=== PATIENT | male | born 1995 | race Caucasian/White ===

== ENCOUNTER 2017-03-08 15:18 | Emergency (ER) | payer OTHER ==
[~2017-03-08] VITALS: Ht 195.6 cm; Wt 69.8 kg
[2017-03-08] MEDS ORDERED: AUGMENTIN 875-1 EACH PO (18:39)
[2017-03-08] MEDS ORDERED: PERCOCET 5-3251 EACH PO (18:39)
--- NOTE | 2017-03-09 13:36 | EKG ---
[facility] [address] [facility] [place] [address] Signed Sinus tachycardia Otherwise normal ECG No previous ECGs available Confirmed by MONIKA FERNANDEZ MD ([id number]) on 03/09/2017 1:36:27 PM Electronically Signed By: MONIKA FERNANDEZ MD 03/09/17 1336 PATIENT NAME: JESICA FAY Electrocardiogram DATE OF : [birth year] PHYSICIAN: MONIKA FERNANDEZ MD REPORT #: [id number] REPORT IS CONFIDENTIAL AND NOT TO BE RELEASED WITHOUT AUTHORIZATION
== END 2017-03-08 19:24 | disposition home or self-care (01) ==
LOC: ED 15:18
DX: J01.00 Acute maxillary sinusitis, unspecified (principal); F17.200 Nicotine dependence, unspecified, uncomplicated; Z88.5 Allergy status to narcotic agent; Z88.8 Allergy status to other drugs, medicaments and biological substances
CPT/HCPCS: 70487; 71046; 80053; 81001; 83605; 85025; 87040; 93005; 93010; 96361; 96374; 96375; 99284; J0696; J1885; J2270; J2405; J7030; Q9967

== ENCOUNTER 2018-10-13 19:45 | Emergency (ER) | payer OTHER ==
[~2018-10-13] VITALS: Ht 195.6 cm; Wt 86.2 kg
[~2018-10-13 19:45] MED LIST: AUGMENTIN 875-1 EACH PO; PERCOCET 5-3251 EACH PO
--- OUTSIDE RECORDS SUMMARY | 2018-10-13 19:48 | XMS ---
PreManage Notification: JESICA FAY Security Auxiliary Operator Events No recent Security Events currently on file CR[facility]IA MET [facility] There are no care providers on record at this time. Fiorella has no Care Guidelines for this patient. Mee VISIT COUNT ([address] [facility]O [facility] TOTAL 3 NOTE: Visits indicate total known visits. ED/C VISIT TRACKING (12 MO.) 10/13/2018 19:45 [facility] [place] TYPE: Emergency COMPLAINT: - ABD PAIN 07/25/2018 02:39 [facility] ID TYPE: Emergency DIAGNOSES: - Alcohol Intoxication - Hypokalemia - Adverse effect of unspecified narcotics, sequela - Numbness in Legs - Alcohol dependence with intoxication, unspecified 11/20/2017 03:54 [facility] [place] TYPE: Emergency COMPLAINT: - INTOXICATED DIAGNOSES: - Alcohol abuse with intoxication, unspecified - Allergy status to other drugs, medicaments and biological substances status - Nicotine dependence, unspecified, uncomplicated - Post-traumatic stress disorder, unspecified - Blood alcohol level of 240 mg/100 ml or more - Allergy status to narcotic agent status INPATIENT VISIT TRACKING (12 MO.) No inpatient visits to display in this time frame [email or web address]
[2018-10-13] MEDS ORDERED: NEURONTIN300 MG PO (19:58)
[2018-10-13] MEDS ORDERED: NAPROXEN500 M1 PO (19:58)
[2018-10-13] MEDS ORDERED: OMEPRAZOLE20 MG PO (22:22)
== END 2018-10-13 22:34 | disposition home or self-care (01) ==
LOC: ED 19:45
DX: K29.00 Acute gastritis without bleeding (principal); F43.10 Post-traumatic stress disorder, unspecified; F17.200 Nicotine dependence, unspecified, uncomplicated; Z88.5 Allergy status to narcotic agent; Z88.8 Allergy status to other drugs, medicaments and biological substances; Z79.899 Other long term (current) drug therapy
CPT/HCPCS: 74177; 80053; 81001; 83690; 83735; 85025; 99284-25; J2405; J7030; Q9967

== ENCOUNTER 2019-01-23 00:19 | Emergency (ER) | payer OTHER ==
[~2019-01-23] VITALS: Ht 195.6 cm; Wt 88.5 kg
[~2019-01-23 00:19] MED LIST changes: +NAPROXEN500 M1 PO; +NEURONTIN300 MG PO; +OMEPRAZOLE20 MG PO
--- OUTSIDE RECORDS SUMMARY | 2019-01-23 00:22 | XMS ---
PreManage Notification: JESICA FAY Security Proof Machine Operator Events No recent Security Events currently on file CRITERIA MET - [facility] CARE PROVIDERS JOEL VASQUEZ Nurse Practitioner: 10/14/2018-Current PHONE: Unknown Fiorella has no Care Guidelines for this patient. E.Betsy. VISIT COUNT (12 MO[address] [facility] [address] [facility] TOTAL 3 NOTE: Visits indicate total known visits. ED/UCC VISIT TRACKING (12 MO.) 01/23/2019 00:19 [facility] [place] TYPE: Emergency COMPLAINT: - ALT LOC 10/13/2018 19:45 [facility] [place] TYPE: Emergency COMPLAINT: - ABD PAIN DIAGNOSES: - Allergy status to oth drug/meds/biol subst status - Allergy status to narcotic agent status - Acute gastritis without bleeding - Post-traumatic stress disorder, unspecified - Other rat exterminator (current) drug therapy - Nicotine dependence, unspecified, uncomplicated - Unspecified abdominal pain 07/25/2018 02:39 [facility] ID TYPE: Emergency DIAGNOSES: - Alcohol Intoxication - Hypokalemia - Adverse effect of unspecified narcotics, sequela - Numbness in Legs - Alcohol dependence with intoxication, unspecified INPATIENT VISIT TRACKING (12 MO.) No inpatient visits to display in this time frame [email or web address]
== END 2019-01-23 02:26 | disposition home or self-care (01) ==
LOC: ED 00:19
DX: Z00.8 Encounter for other general examination (principal); F17.200 Nicotine dependence, unspecified, uncomplicated; Z88.8 Allergy status to other drugs, medicaments and biological substances; Z88.5 Allergy status to narcotic agent; Z79.899 Other long term (current) drug therapy
CPT/HCPCS: 80053; 80176; 81001; 84443; 85025; 99284; G0480

== ENCOUNTER 2019-05-20 18:23 | Emergency (ER) | payer OTHER ==
[~2019-05-20] VITALS: Ht 195.6 cm; Wt 88.5 kg
[2019-05-20] MEDS ORDERED: TYLENOL WITH C1 EACH PO (20:35)
[2019-05-20] MEDS ORDERED: CRUTCH1 EACH MISC (20:36)
== END 2019-05-20 20:53 | disposition home or self-care (01) ==
LOC: ED 18:23
DX: S92.344A Nondisplaced fracture of fourth metatarsal bone, right foot, initial encounter for closed fracture (principal); S92.354A Nondisplaced fracture of fifth metatarsal bone, right foot, initial encounter for closed fracture; F17.200 Nicotine dependence, unspecified, uncomplicated; X58.XXXA Exposure to other specified factors, initial encounter
CPT/HCPCS: 73590; 73630; 99283

== ENCOUNTER 2019-08-14 17:03 | Emergency (ER) | payer OTHER ==
[~2019-08-14] VITALS: Ht 195.6 cm; Wt 88.5 kg
[~2019-08-14 17:03] MED LIST changes: +CRUTCH1 EACH MISC; +TYLENOL WITH C1 EACH PO
--- OUTSIDE RECORDS SUMMARY | 2019-08-14 17:06 | XMS ---
PreManage Notification: JESICA FAY Security Shipping Manager Events No recent Security Events currently on file CRITERIA MET - [facility] - 3 Facilities in 90 Days - [facility] - 2 Visits in 30 Days CARE PROVIDERS JOEL VASQUEZ Nurse Practitioner: Family Current PHONE: [phone] Milan Ruiz Community Health Worker 08/01/2019-Current PHONE: [phone] Fiorella has no Care Guidelines for this patient. EiNcol VISIT COUNT (12 MO.) 1 Adilson Alcala [address] [place] [address] TOTAL 6 NOTE: Visits indicate total known visits. ED/UCC VISIT TRACKING (12 MO.) 08/14/2019 17:04 [facility] [place] TYPE: Emergency COMPLAINT: - DRESSING CHANGE/ ARM INJ 07/30/2019 05:07 Adilson [place] TYPE: Emergency DIAGNOSES: - LV TX - LV 07/30/2019 01:55 [facility] [place] TYPE: Emergency DIAGNOSES: - ARTERY CUT - Alcohol use, unspecified with intoxication, uncomplicated - Laceration of brachial artery, right side, initial encounter - Laceration without foreign body of right wrist, initial encou 05/20/2019 18:24 [facility]O [place] [place] TYPE: Emergency COMPLAINT: - FOOT PAIN, INJ DIAGNOSES: - Nondisplaced fracture of fourth metatarsal bone, right foot, - Nondisplaced fracture of fifth metatarsal bone, right foot, i - Exposure to other specified factors, initial encounter - Pain in right foot - Nicotine dependence, unspecified, uncomplicated - Pain in right foot 01/23/2019 00:19 [facility] [place] TYPE: Emergency COMPLAINT: - ALT LOC DIAGNOSES: - Nicotine dependence, unspecified, uncomplicated - Other keno terminal operator (current) drug therapy - Allergy status to narcotic agent status - Encounter for other general examination - Suicidal ideations - Allergy status to other drugs, medicaments and biological sub 10/13/2018 19:45 [facility] [place] [place] TYPE: Emergency COMPLAINT: - ABD PAIN DIAGNOSES: - Allergy status to other drugs, medicaments and biological sub - Allergy status to narcotic agent status - Acute gastritis without bleeding - Post-traumatic stress disorder, unspecified - Other detention (current) drug therapy - Nicotine dependence, unspecified, uncomplicated - Unspecified abdominal pain INPATIENT VISIT TRACKING (12 MO.) 07/30/2019 05:07 Adilson [place] TYPE: Trauma DIAGNOSES: - Laceration of brachial artery, right side, initial encounter - Contact with sharp glass, initial encounter - Laceration without foreign body of right upper arm, initial e - Laceration of unspecified muscle, fascia and tendon at should - LV TX - Injury of median nerve at forearm level, right arm, initial e [id number]
[2019-08-14] MEDS ORDERED: ACETAMINOPHEN500 MG PO (17:18)
[2019-08-14] MEDS ORDERED: LO-DOSE ASPIRIN81 M1 PO (17:19)
[2019-08-14] MEDS ORDERED: KEFLEX500 MG PO (17:19)
[2019-08-14] MEDS ORDERED: IBU600 MG PO (17:20)
[2019-08-14] MEDS ORDERED: ROBAXIN-750750 MG PO (17:20)
[2019-08-14] MEDS ORDERED: OXYCODONE HCL5 MG PO (17:21)
[2019-08-14] MEDS ORDERED: POLYETHYLENE G500 G2 MISC (17:21)
[2019-08-14] MEDS ORDERED: SENNO8.6 MG PO (17:22)
[2019-08-14] MEDS ORDERED: LYRICA150 MG PO (17:22)
[2019-08-14] MEDS ORDERED: PERCOCET 5-3251 EACH PO (19:01)
== END 2019-08-14 19:14 | disposition home or self-care (01) ==
LOC: ED 17:03
DX: Z48.01 Encounter for change or removal of surgical wound dressing (principal); F17.200 Nicotine dependence, unspecified, uncomplicated; Z88.8 Allergy status to other drugs, medicaments and biological substances; Z88.6 Allergy status to analgesic agent; Z79.899 Other long term (current) drug therapy
CPT/HCPCS: 99282

== ENCOUNTER 2020-02-11 19:53 | Emergency (ER) | payer OTHER ==
[~2020-02-11] VITALS: Ht 195.6 cm; Wt 87.1 kg
[~2020-02-11 19:53] MED LIST changes: +ACETAMINOPHEN500 MG PO; +IBU600 MG PO; +KEFLEX500 MG PO; +LO-DOSE ASPIRIN81 M1 PO; +LYRICA150 MG PO; +OXYCODONE HCL5 MG PO; +POLYETHYLENE G500 G2 MISC; +ROBAXIN-750750 MG PO; +SENNO8.6 MG PO
--- OUTSIDE RECORDS SUMMARY | 2020-02-11 19:56 | XMS ---
PreManage Notification: JESICA FAY Security International Recruiter Events No recent Security Events currently on file CRITERIA MET - [employer] CARE PROVIDERS JOEL VASQUEZ Nurse Practitioner: Family Current PHONE: [phone] JEREMIE SHELL Community Health Worker 08/01/2019-Current PHONE: [phone] Fiorella has no Care Guidelines for this patient. Mee VISIT COUNT (12 MO.) 1 Adilson Alcala [address] [place] [address] Anthony Wanda TOTAL 5 NOTE: Visits indicate total known visits. ED/UCC VISIT TRACKING (12 MO.) 02/11/2020 19:54 [facility]O [facility] [place] TYPE: Emergency COMPLAINT: - VOMITING, CHILLS 08/14/2019 17:04 [facility] [place] TYPE: Emergency COMPLAINT: - DRESSING CHANGE/ ARM INJ DIAGNOSES: - Allergy status to analgesic agent - Nicotine dependence, unspecified, uncomplicated - Other snf (current) drug therapy - Encounter for change or removal of surgical wound dressing - Allergy status to other drugs, medicaments and biological substances 07/30/2019 05:07 Adilson Gallo [place] TYPE: Emergency DIAGNOSES: - LV TX - LV 07/30/2019 01:55 [facility] [place] TYPE: Emergency DIAGNOSES: - ARTERY CUT - Alcohol use, unspecified with intoxication, uncomplicated - Laceration of brachial artery, right side, initial encounter - Laceration without foreign body of right wrist, initial encounter 05/20/2019 18:24 [facility] [place] TYPE: Emergency COMPLAINT: - FOOT PAIN, INJ DIAGNOSES: - Nondisplaced fracture of fourth metatarsal bone, right foot, initial encounter for closed fracture - Nondisplaced fracture of fifth metatarsal bone, right foot, initial encounter for closed fracture - Exposure to other specified factors, initial encounter - Pain in right foot - Nicotine dependence, unspecified, uncomplicated - Pain in right foot INPATIENT VISIT TRACKING (12 MO.) 07/30/2019 05:07 [facility] [place] TYPE: Trauma DIAGNOSES: - Laceration of brachial artery, right side, initial encounter - Contact with sharp glass, initial encounter - Laceration without foreign body of right upper arm, initial encounter - Laceration of unspecified muscle, fascia and tendon at shoulder and upper arm level, right arm, initial encounter - LV TX - Injury of median nerve at forearm level, right arm, initial encounter [id number]
[2020-02-11] MEDS ORDERED: ONDANSETRON ODT4 MG PO (22:22)
[2020-02-11] MEDS ORDERED: DICYCLOMINE HCL20 MG PO (22:22)
== END 2020-02-11 22:45 | disposition home or self-care (01) ==
LOC: ED 19:53
DX: R19.7 Diarrhea, unspecified (principal); R11.10 Vomiting, unspecified; E86.0 Dehydration; F17.200 Nicotine dependence, unspecified, uncomplicated; Z88.8 Allergy status to other drugs, medicaments and biological substances; Z88.5 Allergy status to narcotic agent; Z79.899 Other long term (current) drug therapy; Z79.82 Long term (current) use of aspirin
CPT/HCPCS: 80053; 81001; 83690; 83735; 85025; 96374; 96375; 99284-25; J0500; J1885; J2405; J7121

== ENCOUNTER 2020-05-27 02:06 | Emergency (ER) | payer OTHER ==
[~2020-05-27] VITALS: Ht 195.6 cm; Wt 87.1 kg
[~2020-05-27 02:06] MED LIST changes: +DICYCLOMINE HCL20 MG PO; +ONDANSETRON ODT4 MG PO
--- OUTSIDE RECORDS SUMMARY | 2020-05-27 02:08 | XMS ---
PreManage Notification: JESICA FAY Security Technical Marketing Consultant Events No recent Security Events currently on file CRITERIA MET - PDMP CARE PROVIDERS JOEL VASQUEZ Nurse Practitioner: Family Current PHONE: [phone] JEREMIE SHELL Community Health Worker 08/01/2019-Current PHONE: [phone] Fiorella has no Care Guidelines for this patient. Mee VISIT COUNT (12 MO.) 1 Adilson Alcala [address] [place] [address] Anthony Wanda TOTAL 5 NOTE: Visits indicate total known visits. ED/UCC VISIT TRACKING (12 MO.) 05/27/2020 02:06 [facility] [place] TYPE: Emergency COMPLAINT: - R ARM PAIN 02/11/2020 19:54 [facility] [place] TYPE: Emergency COMPLAINT: - DIARRHEA,VOMITING, CHILLS DIAGNOSES: - Allergy status to narcotic agent - Allergy status to other drugs, medicaments and biological substances - Vomiting, unspecified - Dehydration - Nicotine dependence, unspecified, uncomplicated - penitentiary (current) use of aspirin - Allergy status to narcotic agent - Diarrhea, unspecified - Other jail (current) drug therapy - Allergy status to other drugs, medicaments and biological substances 08/14/2019 17:04 [facility]O [facility] [place] TYPE: Emergency COMPLAINT: - DRESSING CHANGE/ ARM INJ DIAGNOSES: - Allergy status to analgesic agent - Nicotine dependence, unspecified, uncomplicated - Other jail (current) drug therapy - Encounter for change or removal of surgical wound dressing - Allergy status to other drugs, medicaments and biological substances 07/30/2019 05:07 Adilson Gallo [place] TYPE: Emergency DIAGNOSES: - LV TX - LV 07/30/2019 01:55 [facility] [place] TYPE: Emergency DIAGNOSES: - ARTERY CUT - Alcohol use, unspecified with intoxication, uncomplicated - Laceration of brachial artery, right side, initial encounter - Laceration without foreign body of right wrist, initial encounter INPATIENT VISIT TRACKING (12 MO.) 07/30/2019 05:07 [...] at forearm level, right arm, initial encounter [id number]
[2020-05-27] MEDS ORDERED: BACLOFEN20 MG PO (03:35)
[2020-05-27] MEDS ORDERED: OXYCODONE HCL10 MG PO (03:35)
[2020-05-27] MEDS ORDERED: TRAMADOL HCL50 MG PO (03:36)
[2020-05-27] MEDS ORDERED: OXYCODONE HCL5 MG PO (06:52)
== END 2020-05-27 07:05 | disposition home or self-care (01) ==
LOC: ED 02:06
DX: M54.5 Low back pain (principal); G89.29 Other chronic pain; Z88.8 Allergy status to other drugs, medicaments and biological substances; Z88.5 Allergy status to narcotic agent; Z79.899 Other long term (current) drug therapy; Z79.891 Long term (current) use of opiate analgesic
CPT/HCPCS: 80048; 85025; 96374; 96375; 96376; 99283-25; J1170; J2405; J7030

== ENCOUNTER 2020-06-17 22:04 | Emergency (ER) | payer OTHER ==
[~2020-06-17] VITALS: Ht 195.6 cm; Wt 87.1 kg
[~2020-06-17 22:04] MED LIST changes: +BACLOFEN20 MG PO; +OXYCODONE HCL10 MG PO; +TRAMADOL HCL50 MG PO
--- OUTSIDE RECORDS SUMMARY | 2020-06-17 22:06 | XMS ---
PreManage Notification: JESICA FAY Security Furnace Mason Events No recent Security Events currently on file CRITERIA MET - [facility] - [facility] - 2 Visits in 30 Days CARE PROVIDERS JOEL VASQUEZ Nurse Practitioner: Family Current PHONE: [phone] JEREMIE SHELL Community Health Worker 08/01/2019-Current PHONE: [phone] Fiorella has no Care Guidelines for this patient. Care History Medical/Surgical 05/28/2020 [facility] - PATIENT CURRENTLY ON A PAIN CONTRACT WITH PROVIDER JOEL MIKE E.D. VISIT COUNT (12 MO.) 1 Adilson Alcala [address] TOTAL 6 NOTE: Visits indicate total known visits. ED/UCC VISIT TRACKING (12 MO.) 06/17/2020 22:04 [facility]ERTO [place] [place] TYPE: Emergency COMPLAINT: - RT HAND INJURY 05/27/2020 02:06 ROBERTO [facility] [place] TYPE: Emergency COMPLAINT: - R ARM PAIN DIAGNOSES: - Allergy status to narcotic agent - Pain in right arm - Allergy status to other drugs, medicaments and biological substances - Other alf (current) drug therapy - terminal operations supervisor (current) use of opiate analgesic - Low back pain - Other chronic pain 02/11/2020 19:54 [facility] [place] TYPE: Emergency COMPLAINT: - DIARRHEA,VOMITING, CHILLS DIAGNOSES: - Allergy status to narcotic agent - Allergy status to other drugs, medicaments and biological substances - Vomiting, unspecified - Dehydration - Nicotine dependence, unspecified, uncomplicated - terminal operations supervisor (current) use of aspirin - Allergy status to narcotic agent - Diarrhea, unspecified - Other extermination inspector (current) drug therapy - Allergy status to other drugs, medicaments and biological substances 08/14/2019 17:04 [facility]ERTO [facility] [place] TYPE: Emergency COMPLAINT: - DRESSING CHANGE/ ARM INJ DIAGNOSES: - Allergy status to analgesic agent - Nicotine dependence, unspecified, uncomplicated - Other extermination inspector (current) drug therapy - Encounter for change or removal of surgical wound dressing - Allergy status to other drugs, medicaments and biological substances 07/30/2019 05:07 Adilson [facility]o [place] TYPE: Emergency DIAGNOSES: - LV TX - LV 07/30/2019 01:55 [facility] [place] TYPE: Emergency DIAGNOSES: - ARTERY CUT - Alcohol use, unspecified with intoxication, uncomplicated - Laceration of brachial artery, right side, initial encounter - Laceration without foreign body of right wrist, initial encounter INPATIENT VISIT TRACKING (12 MO.) 07/30/2019 05:07 Adilson [facility]o [place] TYPE: Trauma DIAGNOSES: - Laceration [...] at forearm level, right arm, initial encounter [id number]
== END 2020-06-17 23:39 | disposition home or self-care (01) ==
LOC: ED 22:04
DX: S62.340A Nondisplaced fracture of base of second metacarpal bone, right hand, initial encounter for closed fracture (principal); W22.8XXA Striking against or struck by other objects, initial encounter; Z88.8 Allergy status to other drugs, medicaments and biological substances; Z88.5 Allergy status to narcotic agent; Z79.899 Other long term (current) drug therapy; Z79.891 Long term (current) use of opiate analgesic
CPT/HCPCS: 29125; 73130; 99283-25

== ENCOUNTER 2020-11-26 17:58 | Emergency (ER) | payer OTHER ==
[~2020-11-26] VITALS: Ht 195.6 cm; Wt 87.1 kg
--- OUTSIDE RECORDS SUMMARY | 2020-11-26 18:00 | XMS ---
PreManage Notification: JESICA FAY Security Thermodynamicist Events No recent Security Events currently on file CRITERIA MET - [facility] CARE PROVIDERS JOEL VASQUEZ Nurse Practitioner: Family Current PHONE: [phone] JEREMIE SHELL Community Health Worker 08/01/2019-Current PHONE: [phone] Fiorella has no Care Guidelines for this patient. Care History Medical/Surgical 05/28/2020 [facility] - PATIENT CURRENTLY ON A PAIN CONTRACT WITH PROVIDER JOEL VASQUEZ. Mee VISIT COUNT (12 MO.) [address] [place] [address] TOTAL 4 NOTE: Visits indicate total known visits. ED/UCC VISIT TRACKING (12 MO.) 11/26/2020 17:59 [facility] [place] TYPE: Emergency COMPLAINT: - R MIDDLE FINGER WOUND 06/17/2020 22:04 [facility]ERTO [facility] [place] TYPE: Emergency COMPLAINT: - RT HAND INJURY DIAGNOSES: - Other senior living (current) drug therapy - Pain in right hand - residential (current) use of opiate analgesic - Allergy status to narcotic agent - Allergy status to other drugs, medicaments and biological substances - Striking against or struck by other objects, initial encounter - Nondisplaced fracture of base of second metacarpal bone, right hand, initial encounter for closed fracture 05/27/2020 02:06 ROBERTO [facility] [place] TYPE: Emergency COMPLAINT: - R ARM PAIN DIAGNOSES: - Allergy status to narcotic agent - Pain in right arm - Allergy status to other drugs, medicaments and biological substances - Other long term care social worker (current) drug therapy - long term care social worker (current) use of opiate analgesic - Low back pain - Other chronic pain 02/11/2020 19:54 [facility]ERTO [facility] [place] TYPE: Emergency COMPLAINT: - DIARRHEA,VOMITING, CHILLS DIAGNOSES: - Allergy status to narcotic agent - Allergy status to other drugs, medicaments and biological substances - Vomiting, unspecified - Dehydration - Nicotine dependence, unspecified, uncomplicated - long term care social worker (current) use of aspirin - Allergy status to narcotic agent - Diarrhea, unspecified - Other senior living (current) drug therapy - Allergy status to other drugs, medicaments and biological substances INPATIENT VISIT TRACKING (12 MO.) No inpatient visits to display in this time frame [id number]
[2020-11-26] MEDS ORDERED: CEPHALEXIN500 MG PO (20:56)
== END 2020-11-26 21:15 | disposition home or self-care (01) ==
LOC: ED 17:58
DX: I89.1 Lymphangitis (principal); L03.011 Cellulitis of right finger; Z88.8 Allergy status to other drugs, medicaments and biological substances; Z79.899 Other long term (current) drug therapy
CPT/HCPCS: 73130; 96374; 99283-25; J0696

== ENCOUNTER 2020-12-19 21:27 | Emergency (ER) | payer OTHER ==
[~2020-12-19] VITALS: Ht 195.6 cm; Wt 84.4 kg
[~2020-12-19 21:27] MED LIST changes: +CEPHALEXIN500 MG PO
--- OUTSIDE RECORDS SUMMARY | 2020-12-19 21:30 | XMS ---
PreManage Notification: JESICA FAY Security Stock Lifter Events No recent Security Events currently on file CRITERIA MET - [facility] - 2 Visits in 30 Days - [facility] CARE PROVIDERS JOEL VASQUEZ Nurse Practitioner: Family Current PHONE: [phone] JEREMIE SHELL Community Health Worker 08/01/2019-Current PHONE: [phone] Fiorella has no Care Guidelines for this patient. Care History Medical/Surgical 05/28/2020 [facility] - PATIENT CURRENTLY ON A PAIN CONTRACT WITH PROVIDER JOEL MIKE E.D. VISIT COUNT ([address] MO[address] 5 [facility]. TOTAL 5 NOTE: Visits indicate total known visits. ED/UCC VISIT TRACKING (12 MO.) 12/19/2020 21:[address] [facility] [place] TYPE: Emergency COMPLAINT: - FINGER INJURY 11/26/2020 17:[address] [facility] [place] TYPE: Emergency COMPLAINT: - WOUND CHECK DIAGNOSES: - Cellulitis of right finger - Lymphangitis - Other jail (current) drug therapy - Allergy status to other drugs, medicaments and biological substances - Anesthesia of skin 06/17/2020 22:04 [facility]O [facility] [place] TYPE: Emergency COMPLAINT: - RT HAND INJURY DIAGNOSES: - Other jail (current) drug therapy - Pain in right hand - medical terminologist (current) use of opiate analgesic - Allergy [...] drugs, medicaments and biological substances - Other termite renewal inspector (current) drug therapy - [facility] (current) use of opiate analgesic - Low back pain - Other chronic pain 02/11/2020 19:54 [facility] [place] TYPE: Emergency COMPLAINT: - DIARRHEA,VOMITING, CHILLS DIAGNOSES: - Allergy status to narcotic agent - Allergy status to other drugs, medicaments and biological substances - Vomiting, unspecified - Dehydration - Nicotine dependence, unspecified, uncomplicated - medical terminologist (current) use of aspirin - Allergy status to narcotic agent - Diarrhea, unspecified - Other termite renewal inspector (current) drug therapy - Allergy status to other drugs, medicaments and biological substances INPATIENT VISIT TRACKING (12 MO.) No inpatient visits to display in this time frame [id number]
[2020-12-19] MEDS ORDERED: LEVOFLOXACIN750 MG PO (21:44)
== END 2020-12-19 23:49 | disposition home or self-care (01) ==
LOC: ED 21:27
DX: I96 Gangrene, not elsewhere classified (principal); F43.10 Post-traumatic stress disorder, unspecified; Z88.8 Allergy status to other drugs, medicaments and biological substances; Z79.899 Other long term (current) drug therapy; Z79.891 Long term (current) use of opiate analgesic
CPT/HCPCS: 73206; 85025; 96374; 96375; 99284-25; J1170; J2405; Q9967

== ENCOUNTER 2021-06-16 17:47 | Emergency (ER) | payer OTHER ==
[~2021-06-16] VITALS: Ht 195.6 cm; Wt 93.9 kg
[~2021-06-16 17:47] MED LIST changes: +LEVOFLOXACIN750 MG PO
--- OUTSIDE RECORDS SUMMARY | 2021-06-16 17:50 | XMS ---
PreManage Notification: JESICA FAY Security Assistant Chief Engineer Events No recent Security Events currently on file CRITERIA MET - [facility] CARE PROVIDERS JOEL VASQUEZ Nurse Practitioner: Family Current PHONE: Unknown JEREMIE SHELL Community Health Worker 08/01/2019-Current PHONE: [phone] Fiorella has no Care Guidelines for this patient. Care History Medical/Surgical 05/28/2020 [facility] - PATIENT CURRENTLY ON A PAIN CONTRACT WITH PROVIDER JOEL MIKE E.D. VISIT COUNT (12 MO.) [address] [place] [address] TOTAL 4 NOTE: Visits indicate total known visits. ED/UCC VISIT TRACKING (12 MO.) 06/16/2021 17:47 [facility] [place] TYPE: Emergency COMPLAINT: - R HAND PAIN 12/19/2020 21:28 [facility] [place] TYPE: Emergency COMPLAINT: - FINGER INJURY DIAGNOSES: - Post-traumatic stress disorder, unspecified - Allergy status to other drugs, medicaments and biological substances - Gangrene, not elsewhere classified - Other intermodal owner operator truck driver (current) drug therapy - intermodal owner operator truck driver (current) use of opiate analgesic 11/26/2020 17:59 [facility] [place] TYPE: Emergency COMPLAINT: - WOUND CHECK DIAGNOSES: - Cellulitis of right finger - Lymphangitis - Other intermodal owner operator truck driver (current) drug therapy - Allergy status to other drugs, medicaments and biological substances - Anesthesia of skin 06/17/2020 22:04 [facility] [place] TYPE: Emergency COMPLAINT: - RT HAND INJURY DIAGNOSES: - Other [facility] (current) drug therapy - Pain in right hand - prison (current) use of opiate analgesic - Allergy status to narcotic agent - Allergy status to other drugs, medicaments and biological substances - Striking against or struck by other objects, initial encounter - Nondisplaced fracture of base of second metacarpal bone, right hand, initial encounter for closed fracture INPATIENT VISIT TRACKING (12 MO.) No inpatient visits to display in this time frame [id number]
== END 2021-06-16 19:46 | disposition home or self-care (01) ==
LOC: ED 17:47
DX: S60.222A Contusion of left hand, initial encounter (principal); S60.221A Contusion of right hand, initial encounter; X58.XXXA Exposure to other specified factors, initial encounter
CPT/HCPCS: 73130; 99283-25

== ENCOUNTER 2024-01-16 22:44 | Emergency (ER) | payer OTHER ==
[~2024-01-16] VITALS: Ht 195.6 cm; Wt 79.1 kg
--- OUTSIDE RECORDS SUMMARY | ~2024-01-16 | XMS | Continuity of Care Document ---
Demographics + + + | Address | [address] | | | [place] [address] | + + + | Preferred Language | Unknown | + + + | Marital Status | | + + + | Religion Affiliation | Unknown | + + + | Race | White | + + + | Ethnic Group | or | + + + Author + + + | Author | [facility] | + + + | Organization | [facility] | + + + | Address | [address] [facility] [address] | | | [place] [address] | + + + | Phone | | + + + Care Team Providers + + + + | Care Outdoor Advertising Leasing Agent Name | Role | Phone | + + + + Unavailable | Unavailable | + + + + Unavailable | Unavailable | + + + + Unavailable | Unavailable | + + + + Allergies No information. Encounters No information. Functional Status No information. Immunizations No information. Medications + + + + | date | description | facility | + + + + | 2023-10-31 00:00 | ondansetron (as | [facility] | | | ondansetron hcl) 4 mg | Intensive Care | | | disintegrating oral tablet | | + + + + | 2023-10-31 00:00 | oxycodone hcl 5 mg oral | [facility] | | | tablet | Intensive Care | + + + + | 2023-10-31 00:00 | glucoburst 40 % oral gel | [facility] | | | | Intensive Care | + + + + | 2023-10-31 00:00 | insulin, aspart, human 100 | [facility] | | | unt/ml per 3 ml pen | Intensive Care | | | injector | | + + + + | 2023-10-31 00:00 | 2 ml ondansetron 2 mg/ml | [facility] | | | injection | Intensive Care | + + + + | 2023-10-31 00:00 | omeprazole 20 mg (as | [facility] | | | omeprazole magnesium 20.6 | Intensive Care | | | mg) delayed release oral | | | | capsule | | + + + + | 2023-11-01 00:00 | omeprazole 20 mg (as | [facility] | | | omeprazole magnesium 20.6 | Intensive Care | | | mg) delayed release oral | | | | capsule | | + + + + | 2023-10-31 00:00 | dextrose 40 % oral gel | [facility] | | | | Intensive Care | + + + + | 2023-11-14 00:00 | levofloxacin 500 mg oral | [facility] | | | tablet | Intensive Care | + + + + | 2023-10-31 00:00 | potassium phosphate 155 mg | [facility] | | | / sodium phosphate, dibasic | Intensive Care | | | 852 mg / sodium phosphate, | | | | monobasic 130 mg oral | | | | tablet | | + + + + | 2023-10-31 00:00 | omeprazole 40 mg delayed | [facility] | | | release oral capsule | Intensive Care | + + + + | 2023-10-31 00:00 | lantus 100 unt/ml | [facility] | | | injectable solution | Intensive Care | + + + + | 2023-10-31 00:00 | insulin glargine 100 | [facility] | | | unt/ml injectable solution | Intensive Care | + + + + | 2023-10-31 00:00 | metoclopramide hcl 5 mg | [facility] | | | oral tablet | Intensive Care | + + + + | 2023-10-31 00:00 | sennosides, chcf 8.6 mg | [facility] | | | oral tablet | Intensive Care | + + + + | 2023-10-31 00:00 | acetaminophen 325 mg oral | [facility] | | | tablet | Intensive Care | + + + + | 2023-10-31 00:00 | Drug or medicament | [facility] | | | (substance) | Intensive Care | + + + + | 2023-11-14 00:00 | pregabalin 200 mg oral | [facility] | | | capsule | Intensive Care | + + + + | 2023-10-31 00:00 | pot phosphate 155 mg / | [facility] | | | sodium phosphate, dibasic | Intensive Care | | | 852 mg / sodium phosphate, | | | | monobasic 130 mg oral | | | | tablet [phospha 250 | | | | neutral] | | + + + + | 2023-10-31 00:00 | dextrose 50 % in 50 ml | [facility] | | | prefilled syringe | Intensive Care | + + + + | 2023-10-31 00:00 | senna-time 8.6 mg oral | [facility] | | | tablet | Intensive Care | + + + + | 2023-11-14 00:00 | tramadol hydrochloride 50 | [facility] | | | mg oral tablet | Intensive Care | + + + + | 2023-10-31 00:00 | 3 ml insulin analog, | [facility] | | | glargine 100 unt/ml pen | Intensive Care | | | injector | | + + + + | 2023-10-31 00:00 | lantus 300 unt per 3 ml | [facility] | | | solostar pen | Intensive Care | + + + + | 2023-10-31 00:00 | calcium chloride 0.001 | [facility] | | | meq/ml / glucose 50 mg/ml / | Intensive Care | | | k+ chloride 0.004 meq/ml / | | | | nacl 0.103 meq/ml / sodium | | | | lactate 0.028 meq/ml | | | | injectable solution | | + + + + | 2023-10-31 00:00 | calcium chloride 0.0014 | [facility] | | | meq/ml / k+ chloride 0.004 | Intensive Care | | | meq/ml / nacl 0.103 meq/ml | | | | / sodium lactate 0.028 | | | | meq/ml injectable solution | | + + + + | 2023-10-31 00:00 | polyethylene glycol 3350 | [facility] | | | 17 gm powder for oral | Intensive Care | | | solution | | + + + + Problems + + + + | date | description | facility | + + + + | 2023-10-30 00:00 | arf - acute renal failure | [facility] | | | | Intensive Care | + + + + | 2023-10-30 00:00 | nausea and vomiting | [facility] | | | (disorder) | Intensive Care | + + + + | 2023-10-30 00:00 | diabetes type 1 with | [facility] | | | ketoacidosis | Intensive Care | + + + + | 2023-10-30 00:00 | weight loss (finding) | [facility] | | | | Intensive Care | + + + + | 2023-10-30 00:00 | Diabetic ketoacidosis | [facility] | | | associated with type 1 | Intensive Care | | | diabetes mellitus | | + + + + | 2023-10-30 00:00 | MAKSIM (acute kidney injury) | [facility] | | | | Intensive Care | + + + + | 2023-10-30 00:00 | Nausea and vomiting | [facility] | | | | Intensive Care | + + + + | 2023-10-30 00:00 | Weight loss | [facility] | | | | Intensive Care | + + + + | 2023-10-31 00:00 | protein calorie | [facility] | | | malnutrition | Intensive Care | + + + + | 2023-10-31 00:00 | Severe protein-calorie | [facility] | | | malnutrition ([facility]/HCC) | Intensive Care | + + + + Procedures + + + + | date | description | facility | + + + + | 2023-10-31 00:00 | HC XPERT SARS FLU RSV | [facility] | | | | Intensive Care | + + + + | 2023-10-31 00:00 | X-RAY CHEST 1 VIEW | [facility] | | | PORTABLE | Intensive Care | + + + + | 2023-10-31 00:00 | HC RENAL FUNCTION PANEL | [facility] | | | | Intensive Care | + + + + | 2023-10-31 00:00 | HC BLOOD GASES | [facility] | | | | Intensive Care | + + + + | 2023-10-31 00:00 | CHG GLUC BLD GLUC MNTR DEV | [facility] | | | CLEARED FDA SPEC HOME USE | Intensive Care | + + + + | 2023-10-31 00:00 | HC HEMOGLOBIN A1C | [facility] | | | | Intensive Care | + + + + | 2023-10-31 00:00 | HC GLUTAMIC ACID | [facility] | | | DECARBOXYLASE | Intensive Care | + + + + | 2023-10-31 00:00 | HC LIPASE | [facility] | | | | Intensive Care | + + + + | 2023-10-31 00:00 | HC MAGNESIUM | [facility] | | | | Intensive Care | + + + + | 2023-10-31 00:00 | HC CBC W AUTO DIFF | [facility] | | | | Intensive Care | + + + + Results/Labs +--------+--------+ +---------+--------+---------+ | test | date | facility | value | unit | notes | +--------+--------+ +---------+--------+---------+ + + | Result panel 1 | + + + + + + + + + | Specimen | (no date) | [facility] (missing[facility] | (missing) | (missing) | | collection | | [facility] | | | | (procedure) | | [facility] | | | | | | | Intensive | | | | | | | Care | | | | + + + + + + + + + | Result panel 2 | + + + + + + + + + | Specimen | (no date) | [facility] (missing[facility] | (missing) | (missing) | | collection | | [facility] | | | | (procedure) | | [facility] | | | | | | | Intensive | | | | | | | Care | | | | + + + + + + + + + | Result panel 3 | + + + + + + + + + | Specimen | (no date) | [facility] | (missing) | (missing) | (missing) | | collection | | [facility] | | | | | (procedure) | | [facility] | | | | | | | Intensive | | | | | | | Care | | | | + + + + + + + + + | Result panel 4 | + + + + + + + + + | Specimen | (no date) | [facility] | (missing) | (missing) | (missing) | | collection | | [facility] | | | | (procedure) | | [facility] | | | | | | | Intensive | | | | | | | Care | | | | + + + + + + + + + | Result panel 5 | + + + + + + + + + | Specimen | (no date) | [facility] | (missing[facility] | (missing) | (missing) | | collection | | [facility] | | | | | (procedure) | | [facility] | | | | | | | Intensive | | | | | | | Care | | | | + + + + + + + + + | Result panel 6 | + + + + + + + + + | Specimen | (no date) | [facility] | (missing) | (missing) | (missing) | | collection | | [facility] | | | | | (procedure) | | [facility] | | | | | | | Intensive | | | | | | | Care | | | | + + + + + + + + + | Result panel 7 | + + + + + + + + + | Specimen | (no date) | [facility] | (missing) | (missing) | (missing) | | collection | | [facility] | | | | | (procedure) | | [facility] | | | | | | | Intensive | | | | | | | Care | | | | + + + + + + + + + | Result panel 8 | + + + + + + + + + | Specimen | (no date) | [facility] | (missing) | (missing) | (missing) | | collection | | [facility] | | | | | (procedure) | | [facility] | | | | | | | Intensive | | | | | | | Care | | | | + + + + + + + + + | Result panel 9 | + + + + + + + + + | Specimen | (no date) | [facility] | (missing) | (missing) | (missing) | | collection | | [facility] | | | | | (procedure) | | [facility] | | | | | | | Intensive | | | | | | | Care | | | | + + + + + + + + + | Result panel 10 | + + + + + + + + + | Specimen | (no date) | [facility] | (missing) | (missing) | (missing) | | collection | | [facility] | | | | | (procedure) | | [facility] | | | | | | | Intensive | | | | | | | Care | | | | + + + + + + + + + | Result panel 11 | + + + + + + + + + | Specimen | (no date) | [facility] | (missing) | (missing) | (missing) | | collection | | [facility] | | | | | (procedure) | | [facility] | | | | | | | Intensive | | | | | | | Care | | | | + + + + + + + + + | Result panel 12 | + + + + + + + + + | Specimen | (no date) | [facility] | (missing) | (missing) | (missing) | | collection | | [facility] | | | | | (procedure) | | [facility] | | | | | | | Intensive | | | | | | | Care | | | | + + + + + + + + + | Result panel 13 | + + + + + + + + + | Specimen | (no date) | [facility] | (missing) | (missing) | (missing) | | collection | | [facility] | | | | | (procedure) | | [facility] | | | | | | | Intensive | | | | | | | Care | | | | + + + + + + + + + | Result panel 14 | + + + + + + + + + | Specimen | (no date) | [facility] | (missing) | (missing) | (missing) | | collection | | [facility] | | | | | (procedure) | | [facility] | | | | | | | Intensive | | | | | | | Care | | | | + + + + + + + + + | Result panel 15 | + + + + + + + + + | Specimen | (no date) | [facility] | (missing) | (missing) | (missing) | | collection | | [facility] | | | | | (procedure) | | [facility] | | | | | | | Intensive | | | | | | | Care | | | | + + + + + + + + + | Result panel 16 | + + + + + + + + + | Specimen | (no date) | [facility] | (missing) | (missing) | (missing) | | collection | | [facility] | | | | | (procedure) | | [facility] | | | | | | | Intensive | | | | | | | Care | | | | + + + + + + + + + | Result panel 17 | + + + + + + + + + | Specimen | (no date) | [facility] | (missing) | (missing) | (missing) | | collection | | [facility] | | | | | (procedure) | | [facility] | | | | | | | Intensive | | | | | | | Care | | | | + + + + + + + + + | Result panel 18 | + + + + + + + + + | Specimen | (no date) | [facility] | (missing) | (missing) | (missing) | | collection | | [facility] | | | | | (procedure) | | [facility] | | | | | | | Intensive | | | | | | | Care | | | | + + + + + + + + + | Result panel 19 | + + + + + + + + + | Specimen | (no date) | [facility] | (missing) | (missing) | (missing) | | collection | | [facility] | | | | | (procedure) | | [facility] | | | | | | | Intensive | | | | | | | Care | | | | + + + + + + + + + | Result panel 20 | + + + + + + + + + | Specimen | (no date) | [facility] | (missing) | (missing) | (missing) | | collection | | [facility] | | | | | (procedure) | | [facility] | | | | | | | Intensive | | | | | | | Care | | | | + + + + + + + + + | Result panel 21 | + + + + + + + + + | Specimen | (no date) | [facility] | (missing) | (missing) | (missing) | | collection | | [facility] | | | | | (procedure) | | [facility] | | | | | | | Intensive | | | | | | | Care | | | | + + + + + + + + + | Result panel 22 | + + + + + + + + + | Specimen | (no date) | [facility] | (missing) | (missing) | (missing) | | collection | | [facility] | | | | | (procedure) | | [facility] | | | | | | | Intensive | | | | | | | Care | | | | + + + + + + + + + | Result panel 23 | + + + + + + + + + | Specimen | (no date) | [facility] | (missing) | (missing) | (missing) | | collection | | [facility] | | | | | (procedure) | | [facility] | | | | | | | Intensive | | | | | | | Care | | | | + + + + + + + + + | Result panel 24 | + + + + + + + + + | Specimen | (no date) | [facility] | (missing) | (missing) | (missing) | | collection | | [facility] | | | | | (procedure) | | [facility] | | | | | | | Intensive | | | | | | | Care | | | | + + + + + + + + + | Result panel 25 | + + + + + + + + + | Specimen | (no date) | [facility] | (missing) | (missing) | (missing) | | collection | | [facility] | | | | | (procedure) | | [facility] | | | | | | | Intensive | | | | | | | Care | | | | + + + + + + + + + | Result panel 26 | + + + + + + + + + | Specimen | (no date) | [facility] | (missing) | (missing) | (missing) | | collection | | [facility] | | | | | (procedure) | | [facility] | | | | | | | Intensive | | | | | | | Care | | | | + + + + + + + + + | Result panel 27 | + + + + + + + + + | Specimen | (no date) | [facility] | (missing) | (missing) | (missing) | | collection | | [facility] | | | | | (procedure) | | [facility] | | | | | | | Intensive | | | | | | | Care | | | | + + + + + + + + + | Result panel 28 | + + + + + + + + + | Specimen | (no date) | [facility] | (missing) | (missing) | (missing) | | collection | | [facility] | | | | | (procedure) | | [facility] | | | | | | | Intensive | | | | | | | Care | | | | + + + + + + + + + | Result panel 29 | + + + + + + + + + | Specimen | (no date) | [facility] | (missing) | (missing) | (missing) | | collection | | [facility] | | | | | (procedure) | | [facility] | | | | | | | Intensive | | | | | | | Care | | | | + + + + + + + + + | Result panel 30 | + + + + + + + + + | Specimen | (no date) | [facility] | (missing) | (missing) | (missing) | | collection | | [facility] | | | | | (procedure) | | [facility] | | | | | | | Intensive | | | | | | | Care | | | | + + + + + + + + + | Result panel 31 | + + + + + +-------+---------+ + | | 2023-10-31 | [facility] | 309 | mg/dL | (missing) | | (unavailable | 05:15:19 | [facility] | | | | | ) | | [facility] | | | | | | | Intensive | | | | | | | Care | | | | + + + +-------+---------+ + + + | Result panel 32 | + + + + + + + + + | | 2023-10-31 | [facility] | Abnormal | (missing) | (missing) | | (unavailable | 05:15:19 | [facility] | | | | ) | | [facility] | | | | | | | Intensive | | | | | | | Care | | | | + + + + + + + + + | Result panel 33 | + + + + + +--------+ + + | pH Venous | 2023-10-31 | [facility] | 7.32 | (missing) | (missing) | | | 05:43:53 | [facility] | | | | | [facility] | | | | | | | Intensive | | | | | | | Care | | | | + + + +--------+ + + + + | Result panel 34 | + + + + + +------+ + + | pCO2 Venous | 2023-10-31 | [facility] | 26 | (missing) | (missing) | | | 05:43:53 | [facility] | | | | | | [facility] | | | | | | | Intensive | | | | | | | Care | | | | + + + +------+ + + + + | Result panel 35 | + + + + + +------+ + + | pO2 Venous | 2023-10-31 | [facility] | 53 | (missing) | (missing) | | | 05:43:53 | [facility] | | | | | | | [facility] | | | | | | | Intensive | | | | | | | Care | | | | + + + +------+ + + + + | Result panel 36 | + + + + + +------+ + + | HCO3 Venous | 2023-10-31 | [facility] | 13 | mmol/L | (missing) | | | 05:43:53 | [facility] | | | | | | | [facility] | | | | | | | Intensive | | | | | | | Care | | | | + + + +------+ + + + + | Result panel 37 | + + + + + +---------+ + + | BE Venous | 2023-10-31 | [facility] | -11.1 | mmol/L | (missing) | | | 05:43:53 | [facility] | | | | | | [facility] | | | | | | | Intensive | | | | | | | Care | | | | + + + +---------+ + + + + | Result panel 38 | + + + + + +------+-----+ + | O2 Sat Law | 2023-10-31 | [facility] | 88 | % | (missing) | | (Anastacio) | 05:43:53 | [facility] | | | | | [facility] | | | | | | | Intensive | | | | | | | Care | | | | + + + +------+-----+ + + + | Result panel 39 | + + + + + + + + + | | 2023-10-31 | [facility] | Abnormal | (missing) | (missing) | | (unavailable | 05:43:53 | [facility] | | | | | ) | | [facility] | | | | | | | Intensive | | | | | | | Care | | | | + + + + + + + + + | Result panel 40 | + + + + + +-------+---------+ + | | 2023-10-31 | [facility] | 233 | mg/dL | (missing) | | (unavailable | 06:10:22 | [facility] | | | | ) | | [facility] | | | | | | | Intensive | | | | | | | Care | | | | + + + +-------+---------+ + + + | Result panel 41 | + + + + + + + + + | | 2023-10-31 | [facility] | Abnormal | (missing) | (missing) | | (unavailable | 06:10:22 | [facility] | | | ) | | [facility] | | | | | | | Intensive | | | | | | | Care | | | | + + + + + + + + + | Result panel 42 | + + + + + +-------+ + + | | 2023-10-31 | [facility] | 134 | mmol/L | (missing) | | (unavailable | 06:26:40 | [facility] | | | | | ) | | [facility] | | | | | | | Intensive | | | | | | | Care | | | | + + + +-------+ + + + + | Result panel 43 | + + + + + +-------+ + + | | 2023-10-31 | [facility] | 4.0 | mmol/L | (missing) | | (unavailable | ::40 | [facility] | | | | ) | | [facility] | | | | | | | Intensive | | | | | | | Care | | | | + + + +-------+ + + + + | Result panel 44 | + + + + + +-------+ + + | | 2023-10-31 | [facility] | 104 | mmol/L | (missing) | | (unavailable | ::40 | [facility] | | | ) | | [facility] | | | | | | | Intensive | | | | | | | Care | | | | + + + +-------+ + + + + | Result panel 45 | + + + + + +------+ + + | | 2023-10-31 | [facility] | 14 | mmol/L | (missing) | | (unavailable | ::40 | [facility] | | | ) | | [facility] | | | | | | | Intensive | | | | | | | Care | | | | + + + +------+ + + + + | Result panel 46 | + + + + + +------+ + + | Anion Gap | 2023-10-31 | [facility] | 16 | mmol/L | (missing) | | | :40 | [facility] | | | | | [facility] | | | | | | | Intensive | | | | | | | Care | | | | + + + +------+ + + + + | Result panel 47 | + + + + + +------+---------+ + | | 2023-10-31 | [facility] | 32 | mg/dL | (missing) | | (unavailable | :26:40 | [facility] | | | ) | | [facility] | | | | | | | Intensive | | | | | | | Care | | | | + + + +------+---------+ + + + | Result panel 48 | + + + + + +--------+---------+ + | | 2023-10-31 | [facility] | 1.15 | mg/dL | (missing) | | (unavailable | 06:26:40 | [facility] | | | ) | | [facility] | | | | | | | Intensive | | | | | | | Care | | | | + + + +--------+---------+ + + + | Result panel 49 | + + + + + +-------+---------+ + | | 2023-10-31 | [facility] | 293 | mg/dL | (missing) | | (unavailable | 06:26:40 | [facility] | | | ) | | [facility] | | | | | | | Intensive | | | | | | | Care | | | | + + + +-------+---------+ + + + | Result panel 50 | + + + + + +-------+---------+ + | | 2023-10-31 | [facility] | 8.7 | mg/dL | (missing) | | (unavailable | 06:26:40 | [facility] | | | | | ) | | [facility] | | | | | | | Intensive | | | | | | | Care | | | | + + + +-------+---------+ + + + | Result panel 51 | + + + + + +-------+---------+ + | | 2023-10-31 | [facility] | 2.9 | mg/dL | (missing) | | (unavailable | 06:26:40 | [facility] | | | | | ) | | [facility] | | | | | | | Intensive | | | | | | | Care | | | | + + + +-------+---------+ + + + | Result panel 52 | + + + + + +-------+ + + | | 2023-10-31 | [facility] | 3.9 | (missing) | (missing) | | (unavailable | 06:26:40 | [facility] | | | | | ) | | [facility] | | | | | | | Intensive | | | | | | | Care | | | | + + + +-------+ + + + + | Result panel 53 | + + + + + + + + + | | 2023-10-31 | [facility] | Abnormal | (missing) | (missing) | | (unavailable | 06:26:40 | [facility] | | | | | ) | | [facility] | | | | | | | Intensive | | | | | | | Care | | | | + + + + + + + + + | Result panel 54 | + + + + + +-------+---------+ + | | 2023-10-31 | [facility] | 2.0 | mg/dL | (missing) | | (unavailable | 06:26:40 | [facility] | | | | | ) | | [facility] | | | | | | | Intensive | | | | | | | Care | | | | + + + +-------+---------+ + + + | Result panel 55 | + + + + + +---------+ + + | | 2023-10-31 | [facility] | 10.63 | (missing) | (missing) | | (unavailable | 06:30:12 | [facility] | | | | | ) | | [facility] | | | | | | | Intensive | | | | | | | Care | | | | + + + +---------+ + + + + | Result panel 56 | + + + + + +--------+ + + | | 2023-10-31 | [facility] | 4.48 | (missing) | (missing) | | (unavailable | :30:12 | [facility] | | | | | ) | | [facility] | | | | | | | Intensive | | | | | | | Care | | | | + + + +--------+ + + + + | Result panel 57 | + + + + + +--------+ + + | | 2023-10-31 | [facility] | 14.1 | (missing) | (missing) | | (unavailable | :30:12 | [facility] | | | | | ) | | [facility] | | | | | | | Intensive | | | | | | | Care | | | | + + + +--------+ + + + + | Result panel 58 | + + + + + +--------+-----+ + | | 2023-10-31 | [facility] | 39.0 | % | (missing) | | (unavailable | :30:12 | [facility] | | | | | ) | | [facility] | | | | | | | Intensive | | | | | | | Care | | | | + + + +--------+-----+ + + + | Result panel 59 | + + + + + +--------+------+ + | | 2023-10-31 | [facility] | 87.1 | fL | (missing) | | (unavailable | 06:30:12 | [facility] | | | | | ) | | [facility] | | | | | | | Intensive | | | | | | | Care | | | | + + + +--------+------+ + + + | Result panel 60 | + + + + + +--------+------+ + | | 2023-10-31 | [facility] | 31.5 | pg | (missing) | | (unavailable | ::12 | [facility] | | | | | ) | | [facility] | | | | | | | Intensive | | | | | | | Care | | | | + + + +--------+------+ + + + | Result panel 61 | + + + + + +--------+ + + | | 2023-10-31 | [facility] | 36.2 | (missing) | (missing) | | (unavailable | 06:30:12 | [facility] | | | | | ) | | [facility] | | | | | | | Intensive | | | | | | | Care | | | | + + + +--------+ + + + + | Result panel 62 | + + + + + +--------+-----+ + | | 2023-10-31 | [facility] | 14.0 | % | (missing) | | (unavailable | :30:12 | [facility] | | | | | ) | | [facility] | | | | | | | Intensive | | | | | | | Care | | | | + + + +--------+-----+ + + + | Result panel 63 | + + + + + +-------+ + + | | 2023-10-31 | [facility] | 215 | (missing) | (missing) | | (unavailable | 06:30:12 | [facility] | | | | | ) | | [facility] | | | | | | | Intensive | | | | | | | Care | | | | + + + +-------+ + + + + | Result panel 64 | + + + + + +-------+------+ + | | 2023-10-31 | [facility] | 9.6 | fL | (missing) | | (unavailable | :30:12 | [facility] | | | | | ) | | Med Surg | | | | | | | Intensive | | | | | | | Care | | | | + + + +-------+------+ + + + | Result panel 65 | + + + + + +--------+-----+ + | | 2023-10-31 | [facility] | 81.0 | % | (missing) | | (unavailable | :30:12 | [facility] | | | | | ) | | [facility] Surg | | | | | | | Intensive | | | | | | | Care | | | | + + + +--------+-----+ + + + | Result panel 66 | + + + + + +--------+-----+ + | | 2023-10-31 | [facility] | 10.1 | % | (missing) | | (unavailable | 06:30:12 | [facility] | | | | | ) | | [facility] S[facility] | | | | | | | Intensive | | | | | | | Care | | | | + + + +--------+-----+ + + + | Result panel 67 | + + + + + +-------+-----+ + | | 2023-10-31 | [facility] | 8.5 | % | (missing) | | (unavailable | :30:12 | [facility] | | | | | ) | | [facility] | | | | | | | Intensive | | | | | | | Care | | | | + + + +-------+-----+ + + + | Result panel 68 | + + + + + +-------+-----+ + | | 2023-10-31 | [facility] | 0.0 | % | (missing) | | (unavailable | :12 | [facility] | | | | | ) | | [facility] Surg | | | | | | | Intensive | | | | | | | Care | | | | + + + +-------+-----+ + + + | Result panel 69 | + + + + + +-------+-----+ + | | 2023-10-31 | [facility] | 0.1 | % | (missing) | | (unavailable | :30:12 | [facility] | | | | | ) | | [facility] S[facility] | | | | | | | Intensive | | | | | | | Care | | | | + + + +-------+-----+ + + + | Result panel 70 | + + + + + +-------+-----+ + | | 2023-10-31 | [facility] | 0.3 | % | (missing) | | (unavailable | 06:30:12 | [facility] | | | | | ) | | [facility] Surg | | | | | | | Intensive | | | | | | | Care | | | | + + + +-------+-----+ + + + | Result panel 71 | + + + + + +-------+ + + | | 2023-10-31 | [facility] | 0.0 | (missing) | (missing) | | (unavailable | 06:30:12 | [facility] | | | | ) | | [facility] | | | | | | | Intensive | | | | | | | Care | | | | + + + +-------+ + + + + | Result panel 72 | + + + + + +--------+ + + | | 2023-10-31 | [facility] | 8.62 | (missing) | (missing) | | (unavailable | 06:30:12 | [facility] | | | | ) | | [facility] Surg | | | | | | | Intensive | | | | | | | Care | | | | + + + +--------+ + + + + | Result panel 73 | + + + + + +--------+ + + | | 2023-10-31 | [facility] | 1.07 | (missing) | (missing) | | (unavailable | :30:12 | [facility] | | | | ) | | [facility] Surg | | | | | | | Intensive | | | | | | | Care | | | | + + + +--------+ + + + + | Result panel 74 | + + + + + +--------+ + + | | 2023-10-31 | [facility] | 0.90 | (missing) | (missing) | | (unavailable | :30:12 | [facility] | | | ) | | [facility] Surg | | | | | | | Intensive | | | | | | | Care | | | | + + + +--------+ + + + + | Result panel 75 | + + + + + +--------+ + + | | 2023-10-31 | [facility] | 0.00 | (missing) | (missing) | | (unavailable | 06:30:12 | [facility] | | | [facility] | | [facility] Surg | | | | | | | Intensive | | | | | | | Care | | | | + + + +--------+ + + + + | Result panel 76 | + + + + + +--------+ + + | | 2023-10-31 | [facility] | 0.01 | (missing) | (missing) | | (unavailable | 06:30:12 | [facility] | | [facility] | | [facility] Surg | | | | | | | Intensive | | | | | | | Care | | | | + + + +--------+ + + + + | Result panel 77 | + + + + + +--------+ + + | | 2023-10-31 | [facility] | 0.03 | (missing) | (missing) | | (unavailable | ::12 | [facility] | | | | ) | | [facility] Surg | | | | | | | Intensive | | | | | | | Care | | | | + + + +--------+ + + + + | Result panel 78 | + + + + + +--------+ + + | | 2023-10-31 | [facility] | 0.00 | (missing) | (missing) | | (unavailable | 06:30:12 | [facility] | | ) | | [facility] Surg | | | | | | | Intensive | | | | | | | Care | | | | + + + +--------+ + + + + | Result panel 79 | + + + + + + + + + | | 2023-10-31 | [facility] | Abnormal | (missing) | (missing) | | (unavailable | 06:30:12 | [facility] | | | ) | | [facility] Surg | | | | | | | Intensive | | | | | | | Care | | | | + + + + + + + + + | Result panel 80 | + + + + + +-------+-------+ + | | 2023-10-31 | [facility] | 351 | U/L | (missing) | | (unavailable | 06:33:28 | [facility] | | | [facility] | | [facility] Surg | | | | | | | Intensive | | | | | | | Care | | | | + + + +-------+-------+ + + + | Result panel 81 | + + + + + + + + + | | 2023-10-31 | [facility] | Abnormal | (missing) | (missing) | | (unavailable | 06:33:28 | [facility] | | | ) | | [facility] Surg | | | | | | | Intensive | | | | | | | Care | | | | + + + + + + + + + | Result panel 82 | + + + + + +-------+---------+ + | | 2023-10-31 | [facility] | 245 | mg/dL | (missing) | | (unavailable | ::14 | [facility] | | [facility] | | [facility] S[facility] | | | | | | | Intensive | | | | | | | Care | | | | + + + +-------+---------+ + + + | Result panel 83 | + + + + + + + + + | | 2023-10-31 | [facility] | Abnormal | (missing) | (missing) | | (unavailable | 07:05:14 | [facility] | [facility] | | [facility] S[facility] | | | | | | | Intensive | | | | | | | Care | | | | + + + + + + + + + | Result panel 84 | + + + + + +-------+---------+ + | | 2023-10-31 | [facility] | 173 | mg/dL | (missing) | | (unavailable | 08::21 | [facility] | [facility] | | [facility] S[facility] | | | | | | | Intensive | | | | | | | Care | | | | + + + +-------+---------+ + + + | Result panel 85 | + + + + + + + + + | | 2023-10-31 | [facility] | Abnormal | (missing) | (missing) | | (unavailable | 08:10:21 | [facility] | | | ) | | [facility] S[facility] | | | | | | | Intensive | | | | | | | Care | | | | + + + + + + + + + | Result panel 86 | + + + + + +-------+---------+ + | | 2023-10-31 | [facility] | 141 | mg/dL | (missing) | | (unavailable | 09:15:05 | [facility] | | | ) | | [facility] S[facility] | | | | | | | Intensive | | | | | | | Care | | | | + + + +-------+---------+ + + + | Result panel 87 | + + + + + + + + + | | 2023-10-31 | [facility] | Abnormal | (missing) | (missing) | | (unavailable | 09:15:05 | [facility] | | | ) | | [facility] S[facility] | | | | | | | Intensive | | | | | | | Care | | | | + + + + + + + + + | Result panel 88 | + + + + + +-------+ + + | | 2023-10-31 | [facility] | 139 | mmol/L | (missing) | | (unavailable | ::51 | [facility] | | | ) | | [facility] S[facility] | | | | | | | Intensive | | | | | | | Care | | | | + + + +-------+ + + + + | Result panel 89 | + + + + + +-------+ + + | | 2023-10-31 | [facility] | 3.2 | mmol/L | (missing) | | (unavailable | :26:51 | [facility] | | | | | ) | | [facility] S[facility] | | | | | | | Intensive | | | | | | | Care | | | | + + + +-------+ + + + + | Result panel 90 | + + + + + +-------+ + + | | 2023-10-31 | [facility] | 109 | mmol/L | (missing) | | (unavailable | ::51 | [facility] | | | ) | | [facility] S[facility] | | | | | | | Intensive | | | | | | | Care | | | | + + + +-------+ + + + + | Result panel 91 | + + + + + +------+ + + | | 2023-10-31 | [facility] | 21 | mmol/L | (missing) | | (unavailable | :26:51 | [facility] | | | | | ) | | [facility] Surg | | | | | | | Intensive | | | | | | | Care | | | | + + + +------+ + + + + | Result panel 92 | + + + + + +-----+ + + | Anion Gap | 2023-10-31 | [facility] | 9 | mmol/L | (missing) | | | 09:26:51 | [facility] | | | | | | | [facility] | | | | | | | Intensive | | | | | | | Care | | | | + + + +-----+ + + + + | Result panel 93 | + + + + + +------+---------+ + | | 2023-10-31 | [facility] | 25 | mg/dL | (missing) | | (unavailable | 09:26:51 | [facility] | | | | | ) | | [facility] S[facility] | | | | | | | Intensive | | | | | | | Care | | | | + + + +------+---------+ + + + | Result panel 94 | + + + + + +--------+---------+ + | | 2023-10-31 | [facility] | 0.89 | mg/dL | (missing) | | (unavailable | 09:26:51 | [facility] | | | | | ) | | [facility] S[facility] | | | | | | | Intensive | | | | | | | Care | | | | + + + +--------+---------+ + + + | Result panel 95 | + + + + + +-------+---------+ + | | 2023-10-31 | [facility] | 149 | mg/dL | (missing) | | (unavailable | :51 | [facility] | | | | | ) | | [facility] S[facility] | | | | | | | Intensive | | | | | | | Care | | | | + + + +-------+---------+ + + + | Result panel 96 | + + + + + +-------+---------+ + | | 2023-10-31 | [facility] | 8.4 | mg/dL | (missing) | | (unavailable | ::51 | [facility] | | | | | ) | | [facility] S[facility] | | | | | | | Intensive | | | | | | | Care | | | | + + + +-------+---------+ + + + | Result panel 97 | + + + + + +-------+---------+ + | | 2023-10-31 | [facility] | 2.4 | mg/dL | (missing) | | (unavailable | :26:51 | [facility] | | | | | ) | | [facility] S[facility] | | | | | | | Intensive | | | | | | | Care | | | | + + + +-------+---------+ + + + | Result panel 98 | + + + + + +-------+ + + | | 2023-10-31 | [facility] | 3.4 | (missing) | (missing) | | (unavailable | ::51 | [facility] | | | | ) | | [facility] S[facility] | | | | | | | Intensive | | | | | | | Care | | | | + + + +-------+ + + + + | Result panel 99 | + + + + + + + + + | | 2023-10-31 | [facility] | Abnormal | (missing) | (missing) | | (unavailable | 09::51 | [facility] | | | | | ) | | [facility] S[facility] | | | | | | | Intensive | | | | | | | Care | | | | + + + + + + + + + | Result panel 100 | + + + + + +-------+---------+ + | | 2023-10-31 | [facility] | 1.8 | mg/dL | (missing) | | (unavailable | 09:26:51 | [facility] | | | | | ) | | [facility] S[facility] | | | | | | | Intensive | | | | | | | Care | | | | + + + +-------+---------+ + + + | Result panel 101 | + + + + + +-------+---------+ + | | 2023-10-31 | [facility] | 169 | mg/dL | (missing) | | (unavailable | 10:30:12 | [facility] | | | | | ) | | [facility] S[facility] | | | | | | | Intensive | | | | | | | Care | | | | + + + +-------+---------+ + + + | Result panel 102 | + + + + + + + + + | | 2023-10-31 | [facility] | Abnormal | (missing) | (missing) | | (unavailable | 10:30:12 | [facility] | | | | | ) | | [facility] S[facility] | | | | | | | Intensive | | | | | | | Care | | | | + + + + + + + + + | Result panel 103 | + + + + + + + + + | | 2023-10-31 | [facility] | NOT | (missing) | (missing) | | (unavailable | 11:15:29 | [facility] | | | | ) | | Med Surg | | | | | | | Intensive | | | | | | | Care | | | | + + + + + + + + + | Result panel 104 | + + + + + + + + + | Influenza A | 2023-10-31 | [facility] | NOT | (missing) | (missing) | | PCR | :29 | [facility] | | | | [facility] S[facility] | | | | | | | Intensive | | | | | | | Care | | | | + + + + + + + + + | Result panel 105 | + + + + + + + + + | Influenza B | 2023-10-31 | [facility] | NOT | (missing) | (missing) | | PCR | :15:29 | [facility] | | | | [facility] S[facility] | | | | | | | Intensive | | | | | | | Care | | | | + + + + + + + + + | Result panel 106 | + + + + + + + + + | RSV PCR | 2023-10-31 | [facility] | NOT | (missing) | (missing) | | | :29 | [facility] | | | | [facility] S[facility] | | | | | | | Intensive | | | | | | | Care | | | | + + + + + + + + + | Result panel 107 | + + + + + +-------+---------+ + | | 2023-10-31 | [facility] | 214 | mg/dL | (missing) | | (unavailable | 11::15 | [facility] | | | | | ) | | [facility] | | | | | | | Intensive | | | | | | | Care | | | | + + + +-------+---------+ + + + | Result panel 108 | + + + + + + + + + | | 2023-10-31 | [facility] | Abnormal | (missing) | (missing) | | (unavailable | 11:25:15 | [facility] | | | | | ) | | [facility] S[facility] | | | | | | | Intensive | | | | | | | Care | | | | + + + + + + + + + | Result panel 109 | + + + + + +-------+---------+ + | | 2023-10-31 | [facility] | 207 | mg/dL | (missing) | | (unavailable | 12:10:25 | [facility] | | | | | ) | | [facility] S[facility] | | | | | | | Intensive | | | | | | | Care | | | | + + + +-------+---------+ + + + | Result panel 110 | + + + + + + + + + | | 2023-10-31 | [facility] | Abnormal | (missing) | (missing) | | (unavailable | 12:10:25 | [facility] | | | | | ) | | [facility] S[facility] | | | | | | | Intensive | | | | | | | Care | | | | + + + + + + + + + | Result panel 111 | + + + + + + + + + | | 2023-10-31 | [facility] | (missing) | (missing) | (missing) | | (unavailable | 12:54:27 | [facility] | | | | | ) | | [facility] S[facility] | | | | | | | Intensive | | | | | | | Care | | | | + + + + + + + + + | Result panel 112 | + + +---------+ + + + + + | Chest | 2023-10-31 | [facility] | (missing) | (missing) | (missing) | | | 12:54:27 | [facility] | | | | | | | [facility] | | | | | | | Intensive | | | | | | | Care | | | | +---------+ + + + + + + + | Result panel 113 | + + + + + +-------+---------+ + | | 2023-10-31 | [facility] | 237 | mg/dL | (missing) | | (unavailable | 13:: | [facility] | | | | | ) | | [facility] S[facility] | | | | | | | Intensive | | | | | | | Care | | | | + + + +-------+---------+ + + + | Result panel 114 | + + + + + + + + + | | 2023-10-31 | [facility] | Abnormal | (missing) | (missing) | | (unavailable | 13::09 | [facility] | | | | | ) | | [facility] S[facility] | | | | | | | Intensive | | | | | | | Care | | | | + + + + + + + + + | Result panel 115 | + + + + + +--------+-----+ + | | 2023-10-31 | [facility] | 75.6 | % | (missing) | | (unavailable | 13:24:56 | [facility] | | | | | ) | | [facility] S[facility] | | | | | | | Intensive | | | | | | | Care | | | | + + + +--------+-----+ + + + | Result panel 116 | + + + + + +--------+-----+ + | | 2023-10-31 | [facility] | 13.5 | % | (missing) | | (unavailable | 13:24:56 | [facility] | | | | | ) | | [facility] S[facility] | | | | | | | Intensive | | | | | | | Care | | | | + + + +--------+-----+ + + + | Result panel 117 | + + + + + +--------+-----+ + | | 2023-10-31 | [facility] | 10.4 | % | (missing) | | (unavailable | 13:24:56 | [facility] | | | | | ) | | [facility] S[facility] | | | | | | | Intensive | | | | | | | Care | | | | + + + +--------+-----+ + + + | Result panel 118 | + + + + + +-------+-----+ + | | 2023-10-31 | [facility] | 0.2 | % | (missing) | | (unavailable | 13:24:56 | [facility] | | | | | ) | | [facility] S[facility] | | | | | | | Intensive | | | | | | | Care | | | | + + + +-------+-----+ + + + | Result panel 119 | + + + + + +-------+-----+ + | | 2023-10-31 | [facility] | 0.1 | % | (missing) | | (unavailable | 13::56 | [facility] | | | | | ) | | [facility] S[facility] | | | | | | | Intensive | | | | | | | Care | | | | + + + +-------+-----+ + + + | Result panel 120 | + + + + + +-------+-----+ + | | 2023-10-31 | [facility] | 0.2 | % | (missing) | | (unavailable | 13::56 | [facility] | | | | | ) | | [facility] | | | | | | | Intensive | | | | | | | Care | | | | + + + +-------+-----+ + + + | Result panel 121 | + + + + + +-------+ + + | | 2023-10-31 | [facility] | 0.0 | (missing) | (missing) | | (unavailable | 13:24:56 | [facility] | | | | | ) | | [facility] S[facility] | | | | | | | Intensive | | | | | | | Care | | | | + + + +-------+ + + + + | Result panel 122 | + + + + + +--------+ + + | | 2023-10-31 | [facility] | 6.11 | (missing) | (missing) | | (unavailable | 13:24:56 | [facility] | | | | | ) | | [facility] | | | | | | | Intensive | | | | | | | Care | | | | + + + +--------+ + + + + | Result panel 123 | + + + + + +--------+ + + | | 2023-10-31 | [facility] | 1.09 | (missing) | (missing) | | (unavailable | 13:24:56 | [facility] | | | | | ) | | [facility] S[facility] | | | | | | | Intensive | | | | | | | Care | | | | + + + +--------+ + + + + | Result panel 124 | + + + + + +--------+ + + | | 2023-10-31 | [facility] | 0.84 | (missing) | (missing) | | (unavailable | 13:24:56 | [facility] | | | | | ) | | [facility] | | | | | | | Intensive | | | | | | | Care | | | | + + + +--------+ + + + + | Result panel 125 | + + + + + +--------+ + + | | 2023-10-31 | [facility] | 0.02 | (missing) | (missing) | | (unavailable | 13:24:56 | [facility] | | | | | ) | | [facility] S[facility] | | | | | | | Intensive | | | | | | | Care | | | | + + + +--------+ + + + + | Result panel 126 | + + + + + +--------+ + + | | 2023-10-31 | [facility] | 0.01 | (missing) | (missing) | | (unavailable | 13:24:56 | [facility] | | | | | ) | | [facility] | | | | | | | Intensive | | | | | | | Care | | | | + + + +--------+ + + + + | Result panel 127 | + + + + + +--------+ + + | | 2023-10-31 | [facility] | 0.02 | (missing) | (missing) | | (unavailable | 13:24:56 | [facility] | | | | | ) | | [facility] | | | | | | | Intensive | | | | | | | Care | | | | + + + +--------+ + + + + | Result panel 128 | + + + + + +--------+ + + | | 2023-10-31 | [facility] | 0.00 | (missing) | (missing) | | (unavailable | 13:24:56 | [facility] | | | | | ) | | [facility] S[facility] | | | | | | | Intensive | | | | | | | Care | | | | + + + +--------+ + + + + | Result panel 129 | + + + + + + + + + | | 2023-10-31 | [facility] | Abnormal | (missing) | (missing) | | (unavailable | 13:24:56 | [facility] | | | | | ) | | [facility] S[facility] | | | | | | | Intensive | | | | | | | Care | | | | + + + + + + + + + | Result panel 130 | + + + + + +--------+ + + | | 2023-10-31 | [facility] | 8.09 | (missing) | (missing) | | (unavailable | 13:24:56 | [facility] | | | | | ) | | [facility] | | | | | | | Intensive | | | | | | | Care | | | | + + + +--------+ + + + + | Result panel 131 | + + + + + +--------+ + + | | 2023-10-31 | [facility] | 4.05 | (missing) | (missing) | | (unavailable | 13:24:56 | [facility] | | | | | ) | | [facility] | | | | | | | Intensive | | | | | | | Care | | | | + + + +--------+ + + + + | Result panel 132 | + + + + + +--------+ + + | | 2023-10-31 | [facility] | 12.5 | (missing) | (missing) | | (unavailable | 13:24:56 | [facility] | | | | | ) | | [facility] | | | | | | | Intensive | | | | | | | Care | | | | + + + +--------+ + + + + | Result panel 133 | + + + + + +--------+-----+ + | | 2023-10-31 | [facility] | 35.3 | % | (missing) | | (unavailable | 13:24:56 | [facility] | | | | | ) | | [facility] | | | | | | | Intensive | | | | | | | Care | | | | + + + +--------+-----+ + + + | Result panel 134 | + + + + + +--------+------+ + | | 2023-10-31 | [facility] | 87.2 | fL | (missing) | | (unavailable | 13:24:56 | [facility] | | | | | ) | | [facility] | | | | | | | Intensive | | | | | | | Care | | | | + + + +--------+------+ + + + | Result panel 135 | + + + + + +--------+------+ + | | 2023-10-31 | [facility] | 30.9 | pg | (missing) | | (unavailable | 13:24:56 | [facility] | | | | | ) | | [facility] | | | | | | | Intensive | | | | | | | Care | | | | + + + +--------+------+ + + + | Result panel 136 | + + + + + +--------+ + + | | 2023-10-31 | [facility] | 35.4 | (missing) | (missing) | | (unavailable | 13:24:56 | [facility] | | | | | ) | | [facility] | | | | | | | Intensive | | | | | | | Care | | | | + + + +--------+ + + + + | Result panel 137 | + + + + + +--------+-----+ + | | 2023-10-31 | [facility] | 14.1 | % | (missing) | | (unavailable | 13:24:56 | [facility] | | | | | ) | | [facility] | | | | | | | Intensive | | | | | | | Care | | | | + + + +--------+-----+ + + + | Result panel 138 | + + + + + +-------+ + + | | 2023-10-31 | [facility] | 168 | (missing) | (missing) | | (unavailable | 13:24:56 | [facility] | | | | | ) | | [facility] | | | | | | | Intensive | | | | | | | Care | | | | + + + +-------+ + + + + | Result panel 139 | + + + + + +-------+------+ + | | 2023-10-31 | [facility] | 9.5 | fL | (missing) | | (unavailable | 13:24:56 | [facility] | | | | | ) | | [facility] | | | | | | | Intensive | | | | | | | Care | | | | + + + +-------+------+ + + + | Result panel 140 | + + + + + +-------+ + + | | 2023-10-31 | [facility] | 138 | mmol/L | (missing) | | (unavailable | 13:50:35 | [facility] | | | | | ) | | [facility] | | | | | | | Intensive | | | | | | | Care | | | | + + + +-------+ + + + + | Result panel 141 | + + + + + +-------+ + + | | 2023-10-31 | [facility] | 4.2 | mmol/L | (missing) | | (unavailable | 13:50:35 | [facility] | | | | | ) | | [facility] | | | | | | | Intensive | | | | | | | Care | | | | + + + +-------+ + + + + | Result panel 142 | + + + + + +-------+ + + | | 2023-10-31 | [facility] | 108 | mmol/L | (missing) | | (unavailable | 13:50:35 | [facility] | | | | | ) | | [facility] | | | | | | | Intensive | | | | | | | Care | | | | + + + +-------+ + + + + | Result panel 143 | + + + + + +------+ + + | | 2023-10-31 | [facility] | 18 | mmol/L | (missing) | | (unavailable | 13:50:35 | [facility] | | | | | ) | | [facility] S[facility] | | | | | | | Intensive | | | | | | | Care | | | | + + + +------+ + + + + | Result panel 144 | + + + + + +------+ + + | Anion Gap | 2023-10-31 | [facility] | 12 | mmol/L | (missing) | | | 13:50:35 | [facility] | | | | | | | [facility] | | | | | | | Intensive | | | | | | | Care | | | | + + + +------+ + + + + | Result panel 145 | + + + + + +------+---------+ + | | 2023-10-31 | [facility] | 20 | mg/dL | (missing) | | (unavailable | 13:50:35 | [facility] | | | | | ) | | [facility] S[facility] | | | | | | | Intensive | | | | | | | Care | | | | + + + +------+---------+ + + + | Result panel 146 | + + + + + +--------+---------+ + | | 2023-10-31 | [facility] | 0.78 | mg/dL | (missing) | | (unavailable | 13:50:35 | [facility] | | | | | ) | | [facility] S[facility] | | | | | | | Intensive | | | | | | | Care | | | | + + + +--------+---------+ + + + | Result panel 147 | + + + + + +-------+---------+ + | | 2023-10-31 | [facility] | 236 | mg/dL | (missing) | | (unavailable | 13:50:35 | [facility] | | | | | ) | | [facility] S[facility] | | | | | | | Intensive | | | | | | | Care | | | | + + + +-------+---------+ + + + | Result panel 148 | + + + + + +-------+---------+ + | | 2023-10-31 | [facility] | 8.3 | mg/dL | (missing) | | (unavailable | 13:50:35 | [facility] | | | | | ) | | [facility] S[facility] | | | | | | | Intensive | | | | | | | Care | | | | + + + +-------+---------+ + + + | Result panel 149 | + + + + + +-------+---------+ + | | 2023-10-31 | [facility] | 2.4 | mg/dL | (missing) | | (unavailable | 13:50:35 | [facility] | | | | | ) | | [facility] S[facility] | | | | | | | Intensive | | | | | | | Care | | | | + + + +-------+---------+ + + + | Result panel 150 | + + + + + +-------+ + + | | 2023-10-31 | [facility] | 3.2 | (missing) | (missing) | | (unavailable | 13:50:35 | [facility] | | | | | ) | | [facility] S[facility] | | | | | | | Intensive | | | | | | | Care | | | | + + + +-------+ + + + + | Result panel 151 | + + + + + + + + + | | 2023-10-31 | [facility] | Abnormal | (missing) | (missing) | | (unavailable | 13:50:35 | [facility] | | | | | ) | | [facility] S[facility] | | | | | | | Intensive | | | | | | | Care | | | | + + + + + + + + + | Result panel 152 | + + + + + +-------+---------+ + | | 2023-10-31 | [facility] | 1.8 | mg/dL | (missing) | | (unavailable | 13:50:35 | [facility] | | | | | ) | | [facility] Surg | | | | | | | Intensive | | | | | | | Care | | | | + + + +-------+---------+ + + + | Result panel 153 | + + + + + +-------+---------+ + | | 2023-10-31 | [facility] | 238 | mg/dL | (missing) | | (unavailable | 15:10:30 | [facility] | | | | | ) | | [facility] S[facility] | | | | | | | Intensive | | | | | | | Care | | | | + + + +-------+---------+ + + + | Result panel 154 | + + + + + + + + + | | 2023-10-31 | [facility] | Abnormal | (missing) | (missing) | | (unavailable | 15:10:30 | [facility] | | | | | ) | | [facility] S[facility] | | | | | | | Intensive | | | | | | | Care | | | | + + + + + + + + + | Result panel 155 | + + + + + +-------+---------+ + | | 2023-10-31 | [facility] | 210 | mg/dL | (missing) | | (unavailable | 15:10:33 | [facility] | | | | | ) | | [facility] S[facility] | | | | | | | Intensive | | | | | | | Care | | | | + + + +-------+---------+ + + + | Result panel 156 | + + + + + + + + + | | 2023-10-31 | [facility] | Abnormal | (missing) | (missing) | | (unavailable | 15:10:33 | [facility] | | | | | ) | | [facility] | | | | | | | Intensive | | | | | | | Care | | | | + + + + + + + + + | Result panel 157 | + + + + + +-------+---------+ + | | 2023-10-31 | [facility] | 141 | mg/dL | (missing) | | (unavailable | 17:20:16 | [facility] | | | | | ) | | [facility] S[facility] | | | | | | | Intensive | | | | | | | Care | | | | + + + +-------+---------+ + + + | Result panel 158 | + + + + + + + + + | | 2023-10-31 | [facility] | Abnormal | (missing) | (missing) | | (unavailable | 17:20:16 | [facility] | | | | | ) | | [facility] | | | | | | | Intensive | | | | | | | Care | | | | + + + + + + + + + | Result panel 159 | + + + + + +-------+---------+ + | | 2023-10-31 | [facility] | 152 | mg/dL | (missing) | | (unavailable | 17::14 | [facility] | | | | | ) | | [facility] Surg | | | | | | | Intensive | | | | | | | Care | | | | + + + +-------+---------+ + + + | Result panel 160 | + + + + + + + + + | | 2023-10-31 | [facility] | Abnormal | (missing) | (missing) | | (unavailable | 17:25:14 | [facility] | | | | | ) | | [facility] S[facility] | | | | | | | Intensive | | | | | | | Care | | | | + + + + + + + + + | Result panel 161 | + + + + + +-------+---------+ + | | 2023-10-31 | [facility] | 1.8 | mg/dL | (missing) | | (unavailable | 18:04:39 | [facility] | | | | | ) | | Med Surg | | | | | | | Intensive | | | | | | | Care | | | | + + + +-------+---------+ + + + | Result panel 162 | + + + + + +-------+ + + | | 2023-10-31 | [facility] | 136 | mmol/L | (missing) | | (unavailable | 18:04:39 | [facility] | | | | | ) | | [facility] Surg | | | | | | | Intensive | | | | | | | Care | | | | + + + +-------+ + + + + | Result panel 163 | + + + + + +-------+ + + | | 2023-10-31 | [facility] | 3.2 | mmol/L | (missing) | | (unavailable | 18:04:39 | [facility] | | | | | ) | | [facility] Surg | | | | | | | Intensive | | | | | | | Care | | | | + + + +-------+ + + + + | Result panel 164 | + + + + + +-------+ + + | | 2023-10-31 | [facility] | 108 | mmol/L | (missing) | | (unavailable | 18:04:39 | [facility] | | | | | ) | | [facility] S[facility] | | | | | | | Intensive | | | | | | | Care | | | | + + + +-------+ + + + + | Result panel 165 | + + + + + +------+ + + | | 2023-10-31 | [facility] | 22 | mmol/L | (missing) | | (unavailable | 18:04:39 | [facility] | | | | | ) | | [facility] Surg | | | | | | | Intensive | | | | | | | Care | | | | + + + +------+ + + + + | Result panel 166 | + + + + + +-----+ + + | Anion Gap | 2023-10-31 | [facility] | 6 | mmol/L | (missing) | | | 18:04:39 | [facility] | | | | | | | [facility] S[facility] | | | | | | | Intensive | | | | | | | Care | | | | + + + +-----+ + + + + | Result panel 167 | + + + + + +------+---------+ + | | 2023-10-31 | [facility] | 15 | mg/dL | (missing) | | (unavailable | 18:04:39 | [facility] | | | | | ) | | [facility] S[facility] | | | | | | | Intensive | | | | | | | Care | | | | + + + +------+---------+ + + + | Result panel 168 | + + + + + +--------+---------+ + | | 2023-10-31 | [facility] | 0.62 | mg/dL | (missing) | | (unavailable | 18:04:39 | [facility] | | | | | ) | | [facility] S[facility] | | | | | | | Intensive | | | | | | | Care | | | | + + + +--------+---------+ + + + | Result panel 169 | + + + + + +-------+---------+ + | | 2023-10-31 | [facility] | 144 | mg/dL | (missing) | | (unavailable | 18:04:39 | [facility] | | | | | ) | | Med Surg | | | | | | | Intensive | | | | | | | Care | | | | + + + +-------+---------+ + + + | Result panel 170 | + + + + + +-------+---------+ + | | 2023-10-31 | [facility] | 8.1 | mg/dL | (missing) | | (unavailable | 18:04:39 | [facility] | | | | ) | | [facility] Surg | | | | | | | Intensive | | | | | | | Care | | | | + + + +-------+---------+ + + + | Result panel 171 | + + + + + +-------+---------+ + | | 2023-10-31 | [facility] | 1.8 | mg/dL | (missing) | | (unavailable | 18:04:39 | [facility] | | | | | ) | | Med Surg | | | | | | | Intensive | | | | | | | Care | | | | + + + +-------+---------+ + + + | Result panel 172 | + + + + + +-------+ + + | | 2023-10-31 | [facility] | 3.1 | (missing) | (missing) | | (unavailable | 18:04:39 | [facility] | | [facility] | | [facility] S[facility] | | | | | | | Intensive | | | | | | | Care | | | | + + + +-------+ + + + + | Result panel 173 | + + + + + + + + + | | 2023-10-31 | [facility] | Abnormal | (missing) | (missing) | | (unavailable | 18:04:39 | [facility] | | [facility] | | [facility] Surg | | | | | | | Intensive | | | | | | | Care | | | | + + + + + + + + + | Result panel 174 | + + + + + + + + + | | 2023-10-31 | [facility] | (missing) | (missing) | (missing) | | (unavailable | 19:06:18 | [facility] | [facility] | | | | | | | Intensive | | | | | | | Care | | | | + + + + + + + + + | Result panel 175 | + + + + + + + + + | | 2023-10-31 | [facility] | (missing) | (missing) | (missing) | | (unavailable | 19:06:18 | [facility] | [facility] | | [facility] S[facility] | | | | | | | Intensive | | | | | | | Care | | | | + + + + + + + + + | Result panel 176 | + + + + + +-------+---------+ + | | 2023-10-31 | [facility] | 115 | mg/dL | (missing) | | (unavailable | 19:10:29 | [facility] | | | [facility] | | [facility] S[facility] | | | | | | | Intensive | | | | | | | Care | | | | + + + +-------+---------+ + + + | Result panel 177 | + + + + + + + + + | | 2023-10-31 | [facility] | Abnormal | (missing) | (missing) | | (unavailable | 19:10:29 | [facility] | | [facility] | | [facility] S[facility] | | | | | | | Intensive | | | | | | | Care | | | | + + + + + + + + + | Result panel 178 | + + + + + +--------+-----+ + | | 2023-11-02 | [facility] | 13.1 | % | (missing) | | (unavailable | 03:19:45 | [facility] | | [facility] ) | | [facility] S[facility] | | | | | | | Intensive | | | | | | | Care | | | | + + + +--------+-----+ + + + | Result panel 179 | + + + + + + + + + | | 2023-11-02 | [facility] | See Comment | (missing) | (missing) | | (unavailable | 03:19:45 | [facility] | | | ) | | [facility] S[facility] | | | | | | | Intensive | | | | | | | Care | | | | + + + + + + + + + | Result panel 180 | + + + + + + + + + | | 2023-11-02 | [facility] | Abnormal | (missing) | (missing) | | (unavailable | 03:19:45 | [facility] | | [facility] ) | | [facility] S[facility] | | | | | | | Intensive | | | | | | | Care | | | | + + + + + + + + + | Result panel 181 | + + + + + +---------+--------+ + | Glutamic | 2023-11-11 | [facility] | 610.4 | U/mL | (missing) | | Acid | : | [facility] | | | | Decarboxylas | | Med Surg | | | | | e Ab | | Intensive | | | | | | | Care | | | | + + + +---------+--------+ + + + | Result panel 182 | + + + + + + + + + | | 2023-11-11 | [facility] | Abnormal | (missing) | (missing) | | (unavailable | | [facility] | | [facility] Surg | | | | | | | Intensive | | | | | | | Care | | | | + + + + + + + Social History + + + + | date | description | facility | + + + + | 2023-11-14 00:00 | Smokes tobacco daily | [facility] | | | | Intensive Care | + + + + Vital Signs + + + +---------+ | date | measurement | value | units | + + + +---------+ | 2023-10-31 00:00 | BMI | 15.57 | kg/m2 | + + + +---------+ | 2023-10-31 00:00 | BP_diastolic | 69 | mmHg | + + + +---------+ | 2023-10-31 00:00 | BP_systolic | 129 | mmHg | + + + +---------+ | 2023-10-31 00:00 | heart_rate | 89 | /min | + + + +---------+ | 2023-10-31 00:00 | height_metric | 190.5 | cm | + + + +---------+ | 2023-10-31 00:00 | height_standard | 75 | in | + + + +---------+ | 2023-10-31 00:00 | o2_saturation | 98 | % | + + + +---------+ | 2023-10-31 00:00 | respiration_rate | 16 | /min | + + + +---------+ | 2023-10-31 00:00 | temperature_metric | 37.17 | C | | | | | | + + + +---------+ | 2023-10-31 00:00 | | 98.91 | F | | | temperature_standar | | | | | d | | | + + + +---------+ | 2023-10-31 00:00 | weight_metric | 56.5 | kg | + + + +---------+ | 2023-10-31 00:00 | weight_standard | 124.56 | lb | + + + +---------+"
[~2024-01-16 22:44] MED LIST changes: +CYCLOBENZAPRINE10 MG PO; +PREGABALIN150 MG PO
[2024-01-16] MEDS ORDERED: INSULIN AS100 UNIT/3 SUB-Q (22:59)
[2024-01-16 23:22] LABS: MCV 91.5 fl (81-99)
[2024-01-16 23:26] LABS: BASOPHILS 0.1 % (0-2); EOSINOPHILS 0.1 % (0-6); HEMATOCRIT 44.5 % (35.0-50.0); HEMOGLOBIN 15.3 g/dL (12.0-18.0); LYMPHOCYTES 29.2 % (24-44); MCH 31.5 (27-36); MCHC 34.5 g/dl (30-36); MONOCYTES 9.5 % (0-12); NEUTROPHILS 61.1 % (39-80); PLATELET COUNT 250 K/uL (140-440); RBC 4.86 M/ul (4.3-5.7); RDW 14.6 (10.5-15.0)
[2024-01-16 23:42] LABS: ACETAMINOPHEN 0 ug/mL (10-30); ALBUMIN 4.1 g/dL (3.4-5.0); ALBUMIN/GLOBULIN RATIO 1.17 (1.1-2.4); ALCOHOL, MEDICAL 199 ng/dL (<3); ALKALINE PHOSPHATASE 86 U/L (46-116); ALT (SGPT) 31 U/L (14-59); ANION GAP 23.9 (7-21); AST (SGOT) 16 U/L (15-37); BILIRUBIN, TOTAL 0.4 ng/dL (0.2-1.0); CALCIUM 9.5 mg/dL (8.5-10.1); CARBON DIOXIDE 19 mmol/L (21-32); CHLORIDE 107 mmol/L (98-107); CREATININE, SERUM 1.01 mg/dL (0.70-1.30); GLOMERULAR FILTRATION RATE,EST 103 mL/min (>60); POTASSIUM 2.9 mmol/L (3.5-5.1); PROTEIN, TOTAL 7.6 g/dL (6.4-8.2); SALICYLATE 4.9 mg/dL (2.8-20.0); TSH, 3RD GENERATION 0.147 uIU/mL (0.358-3.740); UREA NITROGEN 10 mg/dL (7-18)
[2024-01-16] MEDS ORDERED: SODIUM CHLORIDE 0.9% 1,000 ML IV PRN (23:45)
[2024-01-16] MEDS ORDERED: DEXTROSE 50% 50 ML SYR IV ONE (23:45)
[2024-01-17] MEDS ORDERED: POTASSIUM CHLORIDE 10 MEQ TABCR PO ONE (02:45)
[2024-01-17 02:51] VITALS: BP 104/58
== END 2024-01-17 02:57 | disposition home or self-care (01) ==
LOC: ED 22:44
PROVIDERS: Emergency Medicine
DX: F43.10 Post-traumatic stress disorder, unspecified (principal); E10.9 Type 1 diabetes mellitus without complications; Z88.8 Allergy status to other drugs, medicaments and biological substances; Z79.4 Long term (current) use of insulin; Z79.899 Other long term (current) drug therapy
CPT/HCPCS: 36415; 80053; 80307; 84443; 85025; 96361; 96374; 99285-25; A9270; G0480; J7030

== ENCOUNTER 2024-02-18 19:39 | Emergency (ER) | payer OTHER ==
[~2024-02-18] VITALS: Ht 195.6 cm; Wt 88.9 kg
[~2024-02-18 19:39] MED LIST changes: +INSULIN AS100 UNIT/3 SUB-Q
[2024-02-18] MEDS ORDERED: diazePAM 10 MG/2 ML SYR IV ONE (20:00)
[2024-02-18] MEDS ORDERED: IBLOOD GLUCOSE TEST STRIP 1 EA TEST VI ONE (20:00)
[2024-02-18 20:15] LABS: BILIRUBIN, URINE NEGATIVE (negative); BLOOD/HGB, URINE NEGATIVE (Negative); KETONE, URINE NEGATIVE (Negative); LEUK ESTERASE, URINE NEGATIVE (negative); NITRITE, URINE NEGATIVE (negative)
[2024-02-18 20:19] LABS: PH, VENOUS 7.439 (7.31-7.41)
[2024-02-18 20:21] LABS: BASOPHILS 0.4 % (0-2); EOSINOPHILS 0.2 % (0-6); HEMATOCRIT 43.7 % (35.0-50.0); HEMOGLOBIN 14.9 g/dL (12.0-18.0); LYMPHOCYTES 18.8 % (24-44); MCH 30.9 (27-36); MCV 90.8 fl (81-99); MONOCYTES 6.1 % (0-12); NEUTROPHILS 74.5 % (39-80); PLATELET COUNT 219 K/uL (140-440); RBC 4.81 M/ul (4.3-5.7); RDW 13.6 (10.5-15.0)
[2024-02-18 20:30] LABS: AMPHETAMINES, URINE NEGATIVE (NEGATIVE); BARBITURATES, URINE NEGATIVE (NEGATIVE); BENZODIAZEPINE, URINE NEGATIVE (NEGATIVE); BUPRENORPHINE, URINE NEGATIVE (NEGATIVE); CANNABINOID, URINE NEGATIVE (NEGATIVE); COCAINE, URINE NEGATIVE (NEGATIVE); ECSTASY, URINE NEGATIVE (NEGATIVE); FENTANYL, URINE POSITIVE (NEGATIVE); METHADONE, URINE NEGATIVE (NEGATIVE); OPIATES, URINE NEGATIVE (NEGATIVE); OXYCODONE, URINE NEGATIVE (NEGATIVE); PHENCYCLIDINE, URINE NEGATIVE (NEGATIVE)
[2024-02-18 20:36] LABS: INR 1.02 (0.80-1.30); PROTIME 13.3 Sec (11.2-14.2)
[2024-02-18 20:46] LABS: ALBUMIN 4.1 g/dL (3.4-5.0); ALBUMIN/GLOBULIN RATIO 1.17 (1.1-2.4); ANION GAP 17.5 (7-21); BILIRUBIN, TOTAL 0.4 ng/dL (0.2-1.0); BUN/CREATININE RATIO 10.97 (6.0-28.6); CALCIUM 9.7 mg/dL (8.5-10.1); CREATININE, SERUM 0.82 mg/dL (0.70-1.30); POTASSIUM 3.5 mmol/L (3.5-5.1); PROTEIN, TOTAL 7.6 g/dL (6.4-8.2); TSH, 3RD GENERATION 0.27 uIU/mL (0.358-3.740)
[2024-02-18] MEDS ORDERED: NALOXONE 4 MG NASAL SPRAY #2 HOME.PACK NAS ONE (22:30)
[2024-02-18 22:36] VITALS: BP 112/65
--- NOTE | 2024-02-19 21:57 | EKG ---
[facility] [address] [facility] [place] [address] Signed Normal sinus rhythm Incomplete right bundle branch block Borderline ECG When compared with ECG of 30-OCT-2023 10:28, ST no longer depressed in Anterior leads T wave amplitude has decreased in Anterior leads Confirmed by Susanne Medellin MD () on 02/19/2024 9:57:35 PM Electronically Signed By: SUSANNE MEDELLIN MD 02/19/24 2157 PATIENT NAME: JESICA FAY Electrocardiogram DATE OF : [birth year] PHYSICIAN: SUSANNE MEDELLIN MD REPORT #: [id number] REPORT IS CONFIDENTIAL AND NOT TO BE RELEASED WITHOUT AUTHORIZATION
== END 2024-02-18 22:37 | disposition home or self-care (01) ==
LOC: ED 19:39
PROVIDERS: Family Medicine
DX: R55 Syncope and collapse (principal); E10.9 Type 1 diabetes mellitus without complications; Z88.8 Allergy status to other drugs, medicaments and biological substances; Z79.891 Long term (current) use of opiate analgesic; Z79.4 Long term (current) use of insulin; Z79.899 Other long term (current) drug therapy
CPT/HCPCS: 36415; 70450; 71045; 80053; 80307; 81003; 82010; 82803; 84443; 85025; 85379; 85610; 93005; 93010; 96374; 99285-25; G0480; J3360; J3490

== ENCOUNTER 2024-06-20 14:59 | Emergency (ER) | payer OTHER ==
[2024-06-20] MEDS ORDERED: SODIUM CHLORIDE 0.9% 500 ML IV ONE (15:45)
[2024-06-20 15:59] LABS: BASOPHILS 0.2 % (0-2); EOSINOPHILS 0.2 % (0-6); HEMATOCRIT 43.4 % (35.0-50.0); HEMOGLOBIN 15.2 g/dL (12.0-18.0); LYMPHOCYTES 12.7 % (24-44); MCH 30.1 (27-36); MCHC 35.1 g/dl (30-36); MCV 85.8 fl (81-99); MONOCYTES 4.9 % (0-12); PLATELET COUNT 267 K/uL (140-440); RBC 5.06 M/ul (4.3-5.7); RDW 13.9 (10.5-15.0)
[2024-06-20] MEDS ORDERED: ondansetron HCL 4 MG/2 ML VIAL IV ONE (16:00)
[2024-06-20 16:15] LABS: ALBUMIN 3.6 g/dL (3.4-5.0); ALBUMIN/GLOBULIN RATIO 0.95 (1.1-2.4); ANION GAP 14.8 (7-21); BILIRUBIN, TOTAL 0.8 mg/dL (0.2-1.0); BUN/CREATININE RATIO 16.86 (6.0-28.6); CALCIUM 8.8 mg/dL (8.5-10.1); CREATININE, SERUM 0.83 mg/dL (0.70-1.30); MAGNESIUM 1.9 mg/dL (1.8-2.4); POTASSIUM 3.8 mmol/L (3.5-5.1); PROTEIN, TOTAL 7.4 g/dL (6.4-8.2)
[2024-06-20] MEDS ORDERED: HYDROmorphone HCL 1 MG/ML SYR IV ONE ×4 (17:00→18:45)
[2024-06-20 17:11] LABS: PH, VENOUS 7.453 (7.31-7.41)
[2024-06-20 17:27] LABS: BILIRUBIN, URINE POSITIVE (negative); BLOOD/HGB, URINE SMALL (Negative); KETONE, URINE SMALL (Negative); LEUK ESTERASE, URINE NEGATIVE (negative); NITRITE, URINE NEGATIVE (negative)
[2024-06-20 17:35] LABS: WHITE BLOOD CELLS, URINE 0-1 /HPF (0-5)
[2024-06-20 17:36] LABS: BACTERIA, URINE NONE SEEN /hpf (negative); CASTS, URINE NONE SEEN \\lpf; COLLECTION TYPE, URINE CLEAN CATCH; CRYSTALS, URINE NONE SEEN (0-1+); EPITHELIAL CELLS, URINE SQUAMOUS 1+ /lpf (0-1+); REFLEX CULTURE, URINE No (No)
[2024-06-20] MEDS ORDERED: SODIUM CHLORIDE 0.9% 1,000 ML IV PRN (18:45)
[2024-06-20] MEDS ORDERED: IPRAT-ALBUT 0.5-3 ML INH (19:19)
[2024-06-20] MEDS ORDERED: ZITHROMAX250 MG PO (19:19)
[2024-06-20] MEDS ORDERED: HYDROCODON-ACE1 EAC8 PO (19:20)
[2024-06-20 19:28] VITALS: BP 112/58
[2024-06-20] MEDS ORDERED: HYDROCODONE BIT/ACETAMINOPHEN 5/325 MG 1 TAB HOME.PACK PO ONE (19:30)
[2024-06-20] MEDS ORDERED: HYDROCODONE/APAP 10/325 1 TAB PO ONE (19:45)
--- NOTE | 2024-06-21 13:06 | EKG ---
[facility] [address] [facility] [place] [address] Signed Normal sinus rhythm Normal ECG When compared with ECG of 18-FEB-2024 19:59, No significant change was found Confirmed by Jean Romero DO ([id number]) on 06/21/2024 1:06:07 PM Electronically Signed By: JEAN ROMERO DO 06/21/24 1306 PATIENT NAME: SHAYNEJESICA MEJIA WHIT Electrocardiogram DATE OF : [birth year] PHYSICIAN: JEAN ROMERO DO REPORT #: [id number] REPORT IS CONFIDENTIAL AND NOT TO BE RELEASED WITHOUT AUTHORIZATION
[2024-06-22 10:35] LABS: BETA-HYDROXYBUTYRIC ACID 14.5 mg/dL (0.0-3.0)
== END 2024-06-20 19:40 | disposition home or self-care (01) ==
LOC: ED 14:59
PROVIDERS: Emergency Medicine
DX: J21.9 Acute bronchiolitis, unspecified (principal); E10.9 Type 1 diabetes mellitus without complications; Z88.8 Allergy status to other drugs, medicaments and biological substances; Z79.899 Other long term (current) drug therapy; Z79.4 Long term (current) use of insulin
CPT/HCPCS: 36415; 71045; 71260; 74177; 80053; 81001; 82803; 83690; 83735; 85025; 93005; 93010; 96361; 99285-25; A9270; J1171; J2405; J7030; J7040; Q9967